=== PATIENT | female | born 1955 | race Caucasian/White ===

== ENCOUNTER 2017-10-24 12:36 | Inpatient (IN) | payer MEDICAID ==
[~2017-10-24] VITALS: Ht 160 cm; Wt 88.0 kg
[~2017-10-24 12:36] MED LIST: ATOR10TA PO; FLUO20CA19 PO; GABA300C10 PO; MET10T PO; METO25TA62 PO; PROM25TA5 PO; Pantoprazole Sodium Sesquihydr PO; RANI-229 PO; VANC500PO PO
[2017-10-24] MEDS ORDERED: SODIUM CHLORIDE 0.9% 1,000 ML IV ONE (13:00)
[2017-10-24] MEDS ORDERED: ONDANSETRON HCL 4 MG/2 ML VIAL IV ONE ×2 (13:00→16:15)
[2017-10-24 13:28] LABS: Basophils # (auto) 0.1 uL; Basophils % (auto) 0.9 % (0.0-2.0); Eosinophils # (auto) 0.1 uL; Eosinophils % (auto) 0.6 % (0.0-7.0); Hematocrit 49.6 % (36.0-46.0); Hemoglobin 17.1 g/dL (12.2-16.2); Lymphocytes # (auto) 3.6 uL; Lymphocytes % (auto) 32.9 % (10.0-50.0); Mean Corpuscular Hemoglobin 31.4 pg (28.0-32.0); Mean Corpuscular Hgb Conc. 34.4 g/dL (32.0-36.0); Mean Corpuscular Volume 91.4 fL (80.0-100.0); Monocytes # (auto) 1.2 uL; Monocytes % (auto) 11.2 % (0.0-12.0); Neutrophils # (auto) 5.9 uL; Neutrophils % (auto) 54.4 % (37.0-80.0); Nucleated Red Blood Cells % 0.2 %; Platelet Count (auto) 318 10^3/uL (140-450); Red Blood Cells 5.43 10^6/uL (4.0-5.20); Red Cell Distribution Width 13.1 % (11.8-14.3); White Blood Cell 10.9 10^3/uL (4.4-10.8)
[2017-10-24 13:40] LABS: INR 1.05 (0.9-1.15); Partial Thromboplastin Time 25.8 sec (22.64-33.71); Prothrombin Time 11.4 sec (9.37-12.3)
[2017-10-24 13:53] LABS: Alanine Aminotransferase 20 U/L (13-56); Albumin 3.9 g/dL (3.4-5.0); Anion Gap 7 (5-15); Aspartate Aminotransferase 14 U/L (15-37); BUN/Creatinine Ratio 23.5; Blood Urea Nitrogen 20 mg/dL (7-18); Calcium 9.7 mg/dL (8.5-10.1); Carbon Dioxide 31 mmol/L (21-32); Chloride 97 mmol/L (98-107); GFR African American 87 mL/min; GFR Non-African American 72 mL/min; Glucose 119 mg/dL (74-106); Magnesium 2.4 mg/dL (1.6-2.6); Sodium 135 mmol/L (136-145)
[2017-10-24 13:57] LABS: Alkaline Phosphatase 133 U/L (45-117); Bilirubin, Total 0.9 mg/dL (0.2-1.0); Total Protein 7.6 g/dL (6.4-8.2)
[2017-10-24] MEDS ORDERED: FLUO20CA19 PO (13:57)
[2017-10-24] MEDS ORDERED: PANT40TA2 PO (13:57)
[2017-10-24] MEDS ORDERED: RANI-226 PO (13:57)
[2017-10-24] MEDS ORDERED: METO25TA3 PO (13:57)
[2017-10-24 14:07] LABS: Potassium 2.7 mmol/L (3.5-5.1)
[2017-10-24] MEDS ORDERED: METO10TA3 PO (14:09)
[2017-10-24] MEDS ORDERED: MORP30TA PO (14:09)
[2017-10-24] MEDS ORDERED: POTASSIUM CHL 20 Meq TABLET PO ONE (14:15)
[2017-10-24] MEDS ORDERED: PROMETHAZINE HCL 25 MG/ML 1ML IV ONE (14:45)
[2017-10-24 15:16] LABS: Urine Bacteria NONE SEEN /hpf (None Seen); Urine Blood 1+ /uL (Negative); Urine Budding Yeast FEW /hpf (None Seen); Urine Mucus FEW (None Seen); Urine Specific Gravity 1.029 (1.001-1.035); Urine WBC 121 /hpf (0 - 5)
[2017-10-24] MEDS ORDERED: KETOROLAC TROMETH 30 MG/ML 1ML VIAL IV ONE (16:15)
[2017-10-24] MEDS ORDERED: cefTRIAXone 1GM/10ml IVPUSH 10 ML IV ONE ×2 (16:15→16:45)
[2017-10-24] MEDS ORDERED: MORPHINE SULFATE 4 MG/ML SYR/VIAL IV ONE (16:15)
[2017-10-24] MEDS ORDERED: HYDROcodone-ACET 5/325MG TAB PO PRN (16:45)
[2017-10-24] MEDS ORDERED: ACETAMINOPHEN 500 MG TAB PO PRN (16:45)
[2017-10-24] MEDS ORDERED: PROMETHAZINE HCL 25 MG/ML 1ML IV PRN (16:45)
[2017-10-24] MEDS ORDERED: LORazepam 0.5 MG TAB PO PRN (16:45)
[2017-10-24] MEDS ORDERED: MORPHINE SULFATE 4 MG/ML SYR/VIAL IV PRN (16:45)
[2017-10-24] MEDS ORDERED: TEMAZEPAM 15 MG CAP PO PRN (16:45)
[2017-10-24] MEDS ORDERED: NITROGLYCERIN 0.4 MG SL TAB SL PRN (16:45)
[2017-10-24] MEDS ORDERED: FLUO1TAB14 PO (16:58)
[2017-10-24] MEDS ORDERED: METOPROLOL SUCCINATE XL 50 MG TAB PO ONE (17:15)
[2017-10-24] MEDS: ENOXAPARIN SOD 40 MG/0.4 ML SYRINGE SC SCH (17:16)
[2017-10-24] MEDS: SOD CHL 0.9%/ KCL 40MEQ 1,000 ML IV SCH (17:16)
[2017-10-24 18:00] VITALS: BP 99/70
[2017-10-24 18:45] VITALS: BP 99/70
[2017-10-24] MEDS: MORPHINE SULF 30 mg ER tab PO SCH (20:43)
[2017-10-24] MEDS: GABAPENTIN 300 MG CAP PO SCH (21:56)
[2017-10-24] MEDS: PANTOPRAZOLE 40 MG TAB PO SCH (21:56)
[2017-10-24] MEDS: ATORVASTATIN 20 MG TAB PO SCH (21:56)
[2017-10-24] MEDS: FLUoxetine HCL 20 MG CAP PO SCH (21:57)
[2017-10-24] MEDS ORDERED: PATIENTS OWN MEDICATION ([Pantoprazole Sodium Sesquihydr] (Protonix Tablet) 40 MG) PO SCH (22:00)
[2017-10-24] MEDS ORDERED: PATIENTS OWN MEDICATION (Morphine Sulfate 1 TAB) PO SCH (22:00)
[2017-10-24] MEDS ORDERED: FLUOXETINE HCL PO SCH (22:00)
[2017-10-24 22:09] VITALS: BP 123/69
[2017-10-24] MEDS ORDERED: LACT10SO3 PO (22:13)
[2017-10-24] MEDS ORDERED: AMIT50TA3 PO (22:13)
[2017-10-24] MEDS ORDERED: LACTULOSE 20Gm/30ML SOLN PO PRN (23:00)
[2017-10-25] MEDS: SOD CHL 0.9%/ KCL 40MEQ 1,000 ML IV SCH ×3 (02:37→22:52)
[2017-10-25 05:29] VITALS: BP 109/71
[2017-10-25] MEDS: GABAPENTIN 300 MG CAP PO SCH ×3 (06:18→22:06)
[2017-10-25 07:12] LABS: Basophils # (auto) 0.1 uL; Basophils % (auto) 0.6 % (0.0-2.0); Eosinophils # (auto) 0.2 uL; Eosinophils % (auto) 1.9 % (0.0-7.0); Hematocrit 43.1 % (36.0-46.0); Hemoglobin 14.5 g/dL (12.2-16.2); Lymphocytes # (auto) 4.5 uL; Mean Corpuscular Hemoglobin 31.7 pg (28.0-32.0); Mean Corpuscular Hgb Conc. 33.7 g/dL (32.0-36.0); Mean Corpuscular Volume 94.2 fL (80.0-100.0); Monocytes # (auto) 1.1 uL; Monocytes % (auto) 11.2 % (0.0-12.0); Neutrophils # (auto) 4.3 uL; Neutrophils % (auto) 42.3 % (37.0-80.0); Nucleated Red Blood Cells % 0.2 %; Platelet Count (auto) 223 10^3/uL (140-450); Red Blood Cells 4.57 10^6/uL (4.0-5.20); Red Cell Distribution Width 12.9 % (11.8-14.3); White Blood Cell 10.3 10^3/uL (4.4-10.8)
[2017-10-25 07:21] LABS: BUN/Creatinine Ratio 26.5; Calcium 8.8 mg/dL (8.5-10.1); Potassium 3.6 mmol/L (3.5-5.1)
[2017-10-25 07:24] LABS: Bilirubin, Total 0.7 mg/dL (0.2-1.0); Total Protein 5.8 g/dL (6.4-8.2)
[2017-10-25 09:00] VITALS: BP 101/72
[2017-10-25] MEDS: cefTRIAXone 1GM/10ml IVPUSH 10 ML IV SCH (09:38)
[2017-10-25] MEDS: MORPHINE SULF 30 mg ER tab PO SCH ×2 (09:39→22:20)
[2017-10-25] MEDS: PANTOPRAZOLE 40 MG TAB PO SCH ×2 (09:39→22:06)
[2017-10-25] MEDS: FLUoxetine HCL 20 MG CAP PO SCH ×2 (09:39→22:06)
[2017-10-25] MEDS: ENOXAPARIN SOD 40 MG/0.4 ML SYRINGE SC SCH (09:40)
[2017-10-25] MEDS ORDERED: PATIENTS OWN MEDICATION (Metoprolol Succinate (Metoprolol Succinate Er) 25 MG) PO SCH (10:00)
[2017-10-25] MEDS ORDERED: ATORVASTATIN CALCIUM 20 MG PO SCH (10:00)
[2017-10-25] MEDS: METOPROLOL SUCCINATE XL 50 MG TAB PO SCH (10:12)
[2017-10-25] MEDS: MORPHINE SULFATE 4 MG/ML SYR/VIAL IV PRN ×2 (11:03→18:54)
[2017-10-25 13:00] VITALS: BP 98/67
[2017-10-25 17:00] VITALS: BP 115/71
[2017-10-25 22:00] VITALS: BP 100/82
[2017-10-25] MEDS: ATORVASTATIN 20 MG TAB PO SCH (22:05)
[2017-10-26 06:10] VITALS: BP 93/64
[2017-10-26] MEDS: GABAPENTIN 300 MG CAP PO SCH ×2 (07:10→14:14)
[2017-10-26 08:58] VITALS: BP 103/56
[2017-10-26] MEDS: SOD CHL 0.9%/ KCL 40MEQ 1,000 ML IV SCH (09:25)
[2017-10-26] MEDS: FLUoxetine HCL 20 MG CAP PO SCH (09:26)
[2017-10-26] MEDS: MORPHINE SULF 30 mg ER tab PO SCH (09:26)
[2017-10-26] MEDS: PANTOPRAZOLE 40 MG TAB PO SCH (09:26)
[2017-10-26] MEDS: cefTRIAXone 1GM/10ml IVPUSH 10 ML IV SCH (09:26)
[2017-10-26] MEDS: ENOXAPARIN SOD 40 MG/0.4 ML SYRINGE SC SCH (09:27)
[2017-10-26] MEDS: METOPROLOL SUCCINATE XL 50 MG TAB PO SCH (09:30)
[2017-10-26 12:47] VITALS: BP 112/72
[2017-10-26] MEDS ORDERED: FLUC200T50 PO (15:57)
[2017-10-26] MEDS ORDERED: CIPR-217 PO (15:57)
[2017-10-26] MEDS ORDERED: FLUCONAZOLE 100 MG TAB PO ONE (16:00)
[2017-10-26 16:11] VITALS: BP 116/73
[2017-10-26 16:58] VITALS: BP 111/65
[2017-10-27] MEDS ORDERED: FLUCONAZOLE 100 MG TAB PO SCH (10:00)
== END 2017-10-26 17:30 | disposition home health service (06) | DRG 463 ==
LOC: ER 12:36 → TELE 12:37 → TELE-EAST 18:00
PROVIDERS: ADMIT Internal Medicine; ATTEND Internal Medicine
DX: N39.0 Urinary tract infection, site not specified (principal); E11.42 Type 2 diabetes mellitus with diabetic polyneuropathy; E11.43 Type 2 diabetes mellitus with diabetic autonomic (poly)neuropathy; I10 Essential (primary) hypertension; F32.9 Major depressive disorder, single episode, unspecified; E78.5 Hyperlipidemia, unspecified; E87.6 Hypokalemia; Z82.0 Family history of epilepsy and other diseases of the nervous system; Z82.49 Family history of ischemic heart disease and other diseases of the circulatory system; I70.8 Atherosclerosis of other arteries; J44.9 Chronic obstructive pulmonary disease, unspecified; K21.9 Gastro-esophageal reflux disease without esophagitis; F41.9 Anxiety disorder, unspecified; K31.84 Gastroparesis; K44.9 Diaphragmatic hernia without obstruction or gangrene; K57.30 Diverticulosis of large intestine without perforation or abscess without bleeding; K59.00 Constipation, unspecified; N13.2 Hydronephrosis with renal and ureteral calculous obstruction; Z85.41 Personal history of malignant neoplasm of cervix uteri; Z86.19 Personal history of other infectious and parasitic diseases; Z87.11 Personal history of peptic ulcer disease; Z90.49 Acquired absence of other specified parts of digestive tract
CPT/HCPCS: 36415; 71045; 74176; 80053; 81001; 83605; 83735; 83880; 84484; 85025; 85610; 85730; 87040; 87086; 93005; 94761; 96361; 96374; 96375; 96376; J2405

== ENCOUNTER 2021-01-23 10:45 | Inpatient (IN) | payer OTHER, MEDICAID ==
[~2021-01-23] VITALS: Ht 160 cm; Wt 102.4 kg
[~2021-01-23 10:45] MED LIST changes: +AMIT50TA3 PO; +CIPR500T4 PO; +FLUC200T50 PO; +FLUO1TAB14 PO; -FLUO20CA19 PO; +LACT10SO3 PO; -MET10T PO; +METO10TA3 PO; -METO25TA62 PO; +METO25TA93 PO; +MORP30TA PO; -RANI-229 PO; +RANI300T PO
[2021-01-23] MEDS ORDERED: MORPHINE SULFATE 4 MG/ML SYR/VIAL IV ONE (11:15)
[2021-01-23] MEDS ORDERED: SODIUM CHLORIDE 0.9% 1,000 ML IV ONE ×2 (11:15)
[2021-01-23] MEDS ORDERED: ONDANSETRON HCL 4 MG/2 ML VIAL IV ONE (11:15)
[2021-01-23 11:16] LABS: Basophils # (auto) 0.1 10 ^3/uL (0-0.2); Basophils % (auto) 0.4 % (0.0-2.0); Eosinophils # (auto) 0 10 ^3/uL (0-0.8); Monocytes # (auto) 1.1 10 ^3/uL (0-1.3); Monocytes % (auto) 5.8 % (0.0-12.0)
[2021-01-23 11:17] LABS: Hemoglobin 14.7 g/dL (12.2-16.2); Lymphocytes # (auto) 2.3 10 ^3/uL (0.4-5.4); Lymphocytes % (auto) 11.6 % (10.0-50.0); Mean Corpuscular Hemoglobin 28.8 pg (28.0-32.0); Mean Corpuscular Hgb Conc. 34.2 g/dL (32.0-36.0); Mean Corpuscular Volume 84.4 fL (80.0-100.0); Neutrophils # (auto) 16.1 10 ^3/uL (1.6-8.6); Neutrophils % (auto) 82.2 % (37.0-80.0); Nucleated Red Blood Cells % 0.1 %; Platelet Count (auto) 434 10^3/uL (140-450); Red Blood Cells 5.09 10^6/uL (4.0-5.20); Red Cell Distribution Width 14.5 % (11.8-14.3); White Blood Cell 19.5 10^3/uL (4.4-10.8)
[2021-01-23 11:29] LABS: Albumin 3.6 g/dL (3.4-5.0); Calcium 10.1 mg/dL (8.5-10.1); Potassium 3.4 mmol/L (3.5-5.1)
[2021-01-23 11:33] LABS: BUN/Creatinine Ratio 14.3; Bilirubin, Total 0.6 mg/dL (0.2-1.0); Total Protein 8.4 g/dL (6.4-8.2)
[2021-01-23 13:09] LABS: Urine Bacteria FEW /hpf (None Seen); Urine Blood 2+ /uL (Negative); Urine Budding Yeast OCCASIONAL /hpf (None Seen); Urine Mucus FEW (None Seen); Urine Specific Gravity 1.026 (1.001-1.035); Urine WBC 1 /hpf (0 - 5)
[2021-01-23] MEDS ORDERED: PROMETHAZINE HCL 25 MG/ML 1ML IV PRN (13:45)
[2021-01-23] MEDS ORDERED: NITROGLYCERIN 0.4 MG SL TAB SL PRN (13:45)
[2021-01-23] MEDS ORDERED: MORPHINE SULF INJ 2 MG/ML SYRINGE 1ML IV PRN (13:45)
[2021-01-23] MEDS: HYDROmorphone HCL 2 MG/ML VL IV PRN ×2 (15:55→20:45)
[2021-01-23 22:00] VITALS: BP 118/98
[2021-01-23] MEDS: AMITRIPTYLINE HCL 25 MG TAB PO SCH (22:14)
[2021-01-23] MEDS: GABAPENTIN 300 MG CAP PO PRN (22:15)
[2021-01-23] MEDS: PANTOPRAZOLE 40 MG TAB PO SCH (22:15)
[2021-01-23] MEDS: FLUoxetine HCL 20 MG CAP PO SCH (22:15)
[2021-01-23] MEDS: ATORVASTATIN 20 MG TAB PO SCH (22:15)
[2021-01-23 23:01] VITALS: BP 123/62
[2021-01-24] MEDS: HYDROmorphone HCL 2 MG/ML VL IV PRN ×3 (01:47→12:48)
[2021-01-24 05:00] VITALS: BP 103/52
[2021-01-24 05:54] LABS: Basophils # (auto) 0 10 ^3/uL (0-0.2); Basophils % (auto) 0.3 % (0.0-2.0); Eosinophils # (auto) 0.1 10 ^3/uL (0-0.8); Hematocrit 35.8 % (36.0-46.0); Hemoglobin 12.1 g/dL (12.2-16.2); Lymphocytes # (auto) 3.7 10 ^3/uL (0.4-5.4); Lymphocytes % (auto) 33.9 % (10.0-50.0); Mean Corpuscular Hemoglobin 28.9 pg (28.0-32.0); Mean Corpuscular Hgb Conc. 33.7 g/dL (32.0-36.0); Mean Corpuscular Volume 85.8 fL (80.0-100.0); Monocytes % (auto) 8.9 % (0.0-12.0); Neutrophils # (auto) 6.1 10 ^3/uL (1.6-8.6); Neutrophils % (auto) 55.9 % (37.0-80.0); Nucleated Red Blood Cells % 0.1 %; Platelet Count (auto) 292 10^3/uL (140-450); Red Blood Cells 4.17 10^6/uL (4.0-5.20); Red Cell Distribution Width 14.5 % (11.8-14.3)
[2021-01-24 06:31] LABS: Potassium 3.3 mmol/L (3.5-5.1)
[2021-01-24 06:35] LABS: BUN/Creatinine Ratio 20.3; Calcium 8.6 mg/dL (8.5-10.1)
[2021-01-24 08:00] VITALS: BP 127/70
[2021-01-24 08:20] VITALS: BP 127/70
[2021-01-24] MEDS: FLUoxetine HCL 20 MG CAP PO SCH ×2 (08:48→22:08)
[2021-01-24] MEDS: GABAPENTIN 300 MG CAP PO PRN ×3 (08:48→22:08)
[2021-01-24] MEDS: METOPROLOL SUCCINATE XL 50 MG TAB PO SCH (08:49)
[2021-01-24] MEDS: PANTOPRAZOLE 40 MG TAB PO SCH ×2 (08:49→22:08)
[2021-01-24 12:37] VITALS: BP 134/68
[2021-01-24] MEDS ORDERED: cefTRIAXone 1GM/50ML D5W 50 ML IV ONE (13:00)
[2021-01-24] MEDS: metroNIDAZOLE 500MG/100ML 100 ML IV SCH ×2 (15:11→22:08)
[2021-01-24] MEDS: HYDROcodone-ACET 10/325MG TAB PO PRN ×2 (16:22→22:09)
[2021-01-24 17:00] VITALS: BP 123/92
[2021-01-24] MEDS: AMITRIPTYLINE HCL 25 MG TAB PO SCH (22:08)
[2021-01-24] MEDS: ATORVASTATIN 20 MG TAB PO SCH (22:08)
[2021-01-24 22:10] VITALS: BP 114/67
[2021-01-25 05:07] VITALS: BP 134/78
[2021-01-25] MEDS: metroNIDAZOLE 500MG/100ML 100 ML IV SCH ×2 (06:00→14:16)
[2021-01-25] MEDS: HYDROcodone-ACET 10/325MG TAB PO PRN (06:15)
[2021-01-25 08:00] VITALS: BP 127/69
[2021-01-25] MEDS: GABAPENTIN 300 MG CAP PO PRN (08:55)
[2021-01-25 09:00] VITALS: BP 127/69
[2021-01-25] MEDS ORDERED: cefTRIAXone 1GM/50ML D5W 50 ML IV SCH (09:00)
[2021-01-25] MEDS: PANTOPRAZOLE 40 MG TAB PO SCH (09:08)
[2021-01-25] MEDS: METOPROLOL SUCCINATE XL 50 MG TAB PO SCH (09:09)
[2021-01-25] MEDS: FLUoxetine HCL 20 MG CAP PO SCH (09:10)
[2021-01-25 12:55] VITALS: BP 127/69
[2021-01-25 12:57] VITALS: BP 124/74
== END 2021-01-25 16:00 | disposition home or self-care (01) | DRG 871 ==
LOC: ER 10:45 → TELE 13:38 → TELE-WESTW 19:23
PROVIDERS: ADMIT Nurse Practitioner Acute Care; ATTEND Family Medicine
DX: A41.9 Sepsis, unspecified organism (principal); K57.33 Diverticulitis of large intestine without perforation or abscess with bleeding; K44.9 Diaphragmatic hernia without obstruction or gangrene; N20.0 Calculus of kidney; N30.90 Cystitis, unspecified without hematuria; J44.9 Chronic obstructive pulmonary disease, unspecified; F41.9 Anxiety disorder, unspecified; F32.9 Major depressive disorder, single episode, unspecified; E78.5 Hyperlipidemia, unspecified; I10 Essential (primary) hypertension; K29.70 Gastritis, unspecified, without bleeding; K21.9 Gastro-esophageal reflux disease without esophagitis; K31.84 Gastroparesis; Z20.822 Contact with and (suspected) exposure to COVID-19; Z82.0 Family history of epilepsy and other diseases of the nervous system; Z82.49 Family history of ischemic heart disease and other diseases of the circulatory system; Z86.19 Personal history of other infectious and parasitic diseases; Z87.11 Personal history of peptic ulcer disease; Z90.49 Acquired absence of other specified parts of digestive tract; Z79.899 Other long term (current) drug therapy
CPT/HCPCS: 36415; 74176; 80048; 80053; 81001; 83605; 83690; 85025; 87040; 87426; 93005; 96361; 96374; 96375; G0378; J0696; J2405; J3490

== ENCOUNTER → 2021-04-13 | Outpatient (CLI) | payer MEDICAID ==
[~2021-04-13] MED LIST changes: -CIPR500T4 PO; -FLUC200T50 PO; -LACT10SO3 PO; -MORP30TA PO; -PROM25TA5 PO; -RANI300T PO; -VANC500PO PO
[2021-04-13 13:07] LABS: Basophils # (auto) 0 10 ^3/uL (0-0.2); Basophils % (auto) 0.2 % (0.0-2.0); Eosinophils # (auto) 0.1 10 ^3/uL (0-0.8); Eosinophils % (auto) 1.6 % (0.0-7.0); Hematocrit 38.9 % (36.0-46.0); Hemoglobin 12.9 g/dL (12.2-16.2); Lymphocytes # (auto) 2.9 10 ^3/uL (0.4-5.4); Lymphocytes % (auto) 30.8 % (10.0-50.0); Mean Corpuscular Hgb Conc. 33.2 g/dL (32.0-36.0); Mean Corpuscular Volume 84.2 fL (80.0-100.0); Monocytes # (auto) 0.8 10 ^3/uL (0-1.3); Monocytes % (auto) 8.3 % (0.0-12.0); Neutrophils # (auto) 5.5 10 ^3/uL (1.6-8.6); Neutrophils % (auto) 59.1 % (37.0-80.0); Red Blood Cells 4.62 10^6/uL (4.0-5.20); Red Cell Distribution Width 15.2 % (11.8-14.3); White Blood Cell 9.4 10^3/uL (4.4-10.8)
[2021-04-13 13:18] LABS: INR 0.98 (0.9-1.15)
[2021-04-13 14:00] LABS: Potassium 3.9 mmol/L (3.5-5.1)
[2021-04-13 14:08] LABS: Albumin 2.9 g/dL (3.4-5.0); BUN/Creatinine Ratio 16.2; Bilirubin, Total 0.2 mg/dL (0.2-1.0); Total Protein 7.1 g/dL (6.4-8.2)
== END | disposition home or self-care (01) ==
LOC: LAB 12:43
PROVIDERS: ATTEND Internal Medicine Gastroenterology
DX: K44.9 Diaphragmatic hernia without obstruction or gangrene (principal); K57.30 Diverticulosis of large intestine without perforation or abscess without bleeding; K62.5 Hemorrhage of anus and rectum
CPT/HCPCS: 36415; 80053; 82378; 85025; 85610

== ENCOUNTER 2023-01-06 12:34 | Inpatient (IN) | payer OTHER, MEDICAID ==
[~2023-01-06] VITALS: Ht 160 cm; Wt 92.8 kg
[~2023-01-06 12:34] MED LIST changes: -AMIT50TA3 PO; +AMIT50TA5 PO
[2023-01-06] MEDS ORDERED: SODIUM CHLORIDE 0.9% 1,000 ML IV ONE ×2 (12:45)
[2023-01-06] MEDS ORDERED: ONDANSETRON HCL 4 MG/2 ML VIAL IV ONE (12:45)
[2023-01-06 13:22] LABS: Eosinophils # (auto) 0 10 ^3/uL (0-0.8); Red Cell Distribution Width 15.4 % (11.8-14.3)
[2023-01-06 13:23] LABS: Basophils # (auto) 0.1 10 ^3/uL (0-0.2); Basophils % (auto) 0.9 % (0.0-2.0); Hematocrit 42.8 % (36.0-46.0); Hemoglobin 14.2 g/dL (12.2-16.2); Lymphocytes % (auto) 18.8 % (10.0-50.0); Mean Corpuscular Hemoglobin 27.3 pg (28.0-32.0); Mean Corpuscular Hgb Conc. 33.3 g/dL (32.0-36.0); Mean Corpuscular Volume 82.1 fL (80.0-100.0); Monocytes # (auto) 1.1 10 ^3/uL (0-1.3); Monocytes % (auto) 6.9 % (0.0-12.0); Neutrophils # (auto) 11.9 10 ^3/uL (1.6-8.6); Neutrophils % (auto) 73.4 % (37.0-80.0); Nucleated Red Blood Cells % 0.2 %; Red Blood Cells 5.22 10^6/uL (4.0-5.20); White Blood Cell 16.2 10^3/uL (4.4-10.8)
[2023-01-06 14:20] LABS: Albumin 3.8 g/dL (3.4-5.0); Calcium 10.3 mg/dL (8.5-10.1); Potassium 3.4 mmol/L (3.5-5.1)
[2023-01-06 14:23] LABS: BUN/Creatinine Ratio 21.7 (10.0-20.0); Bilirubin, Total 0.7 mg/dL (0.2-1.0); Total Protein 7.6 g/dL (6.4-8.2)
[2023-01-06] MEDS ORDERED: TAMSULOSIN HYDROCHLORIDE 0.4 MG CAP PO ONE (16:30)
[2023-01-06] MEDS ORDERED: ACETAMINOPHEN 325 MG TAB PO PRN (16:30)
[2023-01-06] MEDS ORDERED: POTASSIUM EFFERVESENT TAB 25 MEQ PO ONE (16:30)
[2023-01-06] MEDS ORDERED: KETOROLAC TROMETH 30 MG/ML 1ML VIAL IV ONE (16:30)
[2023-01-06] MEDS ORDERED: cefTRIAXone 1GM/50ML D5W 50 ML IV ONE (16:30)
[2023-01-06] MEDS: SODIUM CHLORIDE 0.9% 1,000 ML IV SCH (16:30)
[2023-01-06] MEDS: PANTOPRAZOLE 40 MG TAB PO SCH (17:03)
[2023-01-06 17:12] LABS: Cholesterol 154 mg/dL (< 200); Triglycerides 139 mg/dL (< 150)
[2023-01-06 17:14] LABS: HDL Cholesterol 61 mg/dL (40-59); LDL Cholesterol 85 mg/dL (< 100)
[2023-01-06] MEDS: ONDANSETRON HCL 4 MG/2 ML VIAL IV PRN (17:18)
[2023-01-06] MEDS: KETOROLAC TROMETH 30 MG/ML 1ML VIAL IV PRN (17:18)
[2023-01-06] MEDS ORDERED: MORPHINE SULFATE INJ 2 MG/ml SYRG IV ONE (17:30)
[2023-01-06] MEDS: TAMSULOSIN HYDROCHLORIDE 0.4 MG CAP PO SCH (18:00)
[2023-01-06] MEDS: HYDROcodone-ACET 5/325MG TAB PO PRN (20:01)
[2023-01-06] MEDS: AMITRIPTYLINE HCL 25 MG TAB PO SCH (23:15)
[2023-01-06] MEDS: GABAPENTIN 300 MG CAP PO SCH (23:15)
[2023-01-06] MEDS: ATORVASTATIN 20 MG TAB PO SCH (23:16)
[2023-01-06] MEDS: FLUoxetine HCL 20 MG CAP PO SCH (23:16)
[2023-01-07] VITALS (8 sets, daily range): BP systolic 115–154; BP diastolic 56–72
[2023-01-07] MEDS: ONDANSETRON HCL 4 MG/2 ML VIAL IV PRN (00:23)
[2023-01-07] MEDS: KETOROLAC TROMETH 30 MG/ML 1ML VIAL IV PRN ×4 (00:46→23:45)
[2023-01-07] MEDS: SODIUM CHLORIDE 0.9% 1,000 ML IV SCH ×3 (00:50→17:45)
[2023-01-07] MEDS: HYDROcodone-ACET 5/325MG TAB PO PRN ×6 (01:07→22:00)
[2023-01-07] MEDS: GABAPENTIN 300 MG CAP PO SCH ×3 (05:08→21:30)
[2023-01-07 05:45] LABS: Basophils # (auto) 0 10 ^3/uL (0-0.2); Basophils % (auto) 0.4 % (0.0-2.0); Eosinophils # (auto) 0 10 ^3/uL (0-0.8); Eosinophils % (auto) 0.3 % (0.0-7.0); Hematocrit 37.4 % (36.0-46.0); Hemoglobin 12.5 g/dL (12.2-16.2); Lymphocytes # (auto) 3.1 10 ^3/uL (0.4-5.4); Lymphocytes % (auto) 29.9 % (10.0-50.0); Mean Corpuscular Hemoglobin 27.8 pg (28.0-32.0); Mean Corpuscular Hgb Conc. 33.4 g/dL (32.0-36.0); Mean Corpuscular Volume 83.4 fL (80.0-100.0); Monocytes # (auto) 1.3 10 ^3/uL (0-1.3); Monocytes % (auto) 12.1 % (0.0-12.0); Neutrophils % (auto) 57.3 % (37.0-80.0); Nucleated Red Blood Cells % 0.1 %; Red Blood Cells 4.49 10^6/uL (4.0-5.20); Red Cell Distribution Width 15.6 % (11.8-14.3); White Blood Cell 10.4 10^3/uL (4.4-10.8)
[2023-01-07 06:10] LABS: Albumin 3.1 g/dL (3.4-5.0); Calcium 9.1 mg/dL (8.5-10.1)
[2023-01-07 06:13] LABS: BUN/Creatinine Ratio 33.3 (10.0-20.0); Bilirubin, Total 0.4 mg/dL (0.2-1.0); Total Protein 6.5 g/dL (6.4-8.2)
[2023-01-07] MEDS: cefTRIAXone 1GM/50ML D5W 50 ML IV SCH (09:18)
[2023-01-07] MEDS: ENOXAPARIN SOD 40 MG/0.4 ML SYRINGE SC SCH (09:26)
[2023-01-07] MEDS: PANTOPRAZOLE 40 MG TAB PO SCH ×2 (09:26→21:29)
[2023-01-07] MEDS: FLUoxetine HCL 20 MG CAP PO SCH ×2 (09:26→21:29)
[2023-01-07] MEDS: METOPROLOL SUCCINATE XL 50 MG TAB PO SCH (09:36)
[2023-01-07] MEDS: TAMSULOSIN HYDROCHLORIDE 0.4 MG CAP PO SCH (18:41)
[2023-01-07] MEDS: ATORVASTATIN 20 MG TAB PO SCH (21:29)
[2023-01-07] MEDS: AMITRIPTYLINE HCL 25 MG TAB PO SCH (21:30)
[2023-01-07 22:25] LABS: Urine Bacteria NONE SEEN /hpf (None Seen); Urine Blood 1+ /uL (Negative); Urine Mucus FEW (None Seen); Urine WBC 12 /hpf (0 - 5)
[2023-01-08] VITALS (7 sets, daily range): BP systolic 126–158; BP diastolic 55–81
[2023-01-08] MEDS: SODIUM CHLORIDE 0.9% 1,000 ML IV SCH ×3 (02:16→20:31)
[2023-01-08] MEDS: HYDROcodone-ACET 5/325MG TAB PO PRN (05:36)
[2023-01-08] MEDS: GABAPENTIN 300 MG CAP PO SCH ×3 (05:36→22:58)
[2023-01-08] MEDS: cefTRIAXone 1GM/50ML D5W 50 ML IV SCH (08:59)
[2023-01-08] MEDS: KETOROLAC TROMETH 30 MG/ML 1ML VIAL IV PRN ×3 (08:59→20:25)
[2023-01-08] MEDS: FLUoxetine HCL 20 MG CAP PO SCH ×2 (09:00→22:59)
[2023-01-08] MEDS: PANTOPRAZOLE 40 MG TAB PO SCH ×2 (09:01→22:59)
[2023-01-08] MEDS: METOPROLOL SUCCINATE XL 50 MG TAB PO SCH (09:01)
[2023-01-08] MEDS: ENOXAPARIN SOD 40 MG/0.4 ML SYRINGE SC SCH (09:15)
[2023-01-08] MEDS: HYDROcodone-ACET 10/325MG TAB PO PRN ×2 (12:29→20:23)
[2023-01-08 17:19] LABS: BUN/Creatinine Ratio 25.9 (10.0-20.0); Calcium 9.1 mg/dL (8.5-10.1); Potassium 3.7 mmol/L (3.5-5.1)
[2023-01-08] MEDS: TAMSULOSIN HYDROCHLORIDE 0.4 MG CAP PO SCH (18:00)
[2023-01-08] MEDS: ATORVASTATIN 20 MG TAB PO SCH (22:59)
[2023-01-08] MEDS: AMITRIPTYLINE HCL 25 MG TAB PO SCH (22:59)
[2023-01-08] MEDS: TEMAZEPAM 15 MG CAP PO PRN (22:59)
[2023-01-09] MEDS: KETOROLAC TROMETH 30 MG/ML 1ML VIAL IV PRN ×4 (02:24→23:17)
[2023-01-09] MEDS: SODIUM CHLORIDE 0.9% 1,000 ML IV SCH ×3 (02:50→21:43)
[2023-01-09] MEDS: HYDROcodone-ACET 10/325MG TAB PO PRN ×3 (04:20→22:11)
[2023-01-09 05:00] VITALS: BP 143/118
[2023-01-09] MEDS: GABAPENTIN 300 MG CAP PO SCH ×3 (05:47→21:42)
[2023-01-09 08:00] VITALS: BP 141/76
[2023-01-09 09:00] VITALS: BP 141/76
[2023-01-09] MEDS: PANTOPRAZOLE 40 MG TAB PO SCH ×2 (09:05→21:43)
[2023-01-09] MEDS: FLUoxetine HCL 20 MG CAP PO SCH ×2 (09:05→21:42)
[2023-01-09] MEDS: cefTRIAXone 1GM/50ML D5W 50 ML IV SCH (09:05)
[2023-01-09] MEDS: METOPROLOL SUCCINATE XL 50 MG TAB PO SCH (09:06)
[2023-01-09] MEDS: ENOXAPARIN SOD 40 MG/0.4 ML SYRINGE SC SCH (09:07)
[2023-01-09 13:00] VITALS: BP 138/80
[2023-01-09 16:33] VITALS: BP 153/79
[2023-01-09] MEDS: TAMSULOSIN HYDROCHLORIDE 0.4 MG CAP PO SCH (18:28)
[2023-01-09] MEDS: AMITRIPTYLINE HCL 25 MG TAB PO SCH (21:42)
[2023-01-09] MEDS: ATORVASTATIN 20 MG TAB PO SCH (21:43)
[2023-01-09 22:00] VITALS: BP 140/65
[2023-01-10] MEDS: TEMAZEPAM 15 MG CAP PO PRN (00:11)
[2023-01-10 04:00] VITALS: BP 118/70
[2023-01-10] MEDS: GABAPENTIN 300 MG CAP PO SCH ×2 (06:05→13:42)
[2023-01-10] MEDS: SODIUM CHLORIDE 0.9% 1,000 ML IV SCH ×2 (06:07→09:08)
[2023-01-10 08:10] VITALS: BP 148/98
[2023-01-10] MEDS: KETOROLAC TROMETH 30 MG/ML 1ML VIAL IV PRN (08:24)
[2023-01-10 09:00] VITALS: BP 148/98
[2023-01-10] MEDS: cefTRIAXone 1GM/50ML D5W 50 ML IV SCH (09:08)
[2023-01-10] MEDS: PANTOPRAZOLE 40 MG TAB PO SCH (09:10)
[2023-01-10] MEDS: FLUoxetine HCL 20 MG CAP PO SCH (09:10)
[2023-01-10] MEDS: METOPROLOL SUCCINATE XL 50 MG TAB PO SCH (09:10)
[2023-01-10] MEDS: ENOXAPARIN SOD 40 MG/0.4 ML SYRINGE SC SCH (09:11)
[2023-01-10] MEDS ORDERED: CIPR-173 PO (11:01)
[2023-01-10] MEDS: HYDROcodone-ACET 10/325MG TAB PO PRN (11:29)
[2023-01-10 13:29] VITALS: BP 147/78
[2023-01-10 14:32] VITALS: BP 148/98
[2023-01-10] MEDS: TAMSULOSIN HYDROCHLORIDE 0.4 MG CAP PO SCH (17:52)
== END 2023-01-10 18:24 | disposition home or self-care (01) | DRG 872 ==
LOC: ER 12:34 → OVERFLOW 16:24 → WEST WING 23:30
PROVIDERS: ADMIT Nurse Practitioner Family; ATTEND Family Medicine
DX: A41.9 Sepsis, unspecified organism (principal); N10 Acute pyelonephritis; M48.57XA Collapsed vertebra, not elsewhere classified, lumbosacral region, initial encounter for fracture; N20.0 Calculus of kidney; E66.01 Morbid (severe) obesity due to excess calories; K44.9 Diaphragmatic hernia without obstruction or gangrene; I10 Essential (primary) hypertension; E78.00 Pure hypercholesterolemia, unspecified; E87.6 Hypokalemia; F12.10 Cannabis abuse, uncomplicated; F32.A Depression, unspecified; J44.9 Chronic obstructive pulmonary disease, unspecified; K21.9 Gastro-esophageal reflux disease without esophagitis; R29.890 Loss of height; S80.01XA Contusion of right knee, initial encounter; W18.39XA Other fall on same level, initial encounter; Z82.49 Family history of ischemic heart disease and other diseases of the circulatory system; Z82.0 Family history of epilepsy and other diseases of the nervous system; Z87.11 Personal history of peptic ulcer disease; Y92.098 Other place in other non-institutional residence as the place of occurrence of the external cause; Y99.8 Other external cause status; Z90.49 Acquired absence of other specified parts of digestive tract; Y93.K1 Activity, walking an animal; Z71.51 Drug abuse counseling and surveillance of drug abuser; Z68.36 Body mass index [BMI] 36.0-36.9, adult
CPT/HCPCS: 36415; 72131; 72148; 73700; 74176; 80048; 80053; 80061; 81001; 83036; 84443; 84484; 85025; 87086; 93005; 96361; 96365; 96375; G0378; J0696; J1885; J2405

== ENCOUNTER 2023-02-04 23:21 | Inpatient (IN) | payer OTHER, MEDICAID ==
[~2023-02-04] VITALS: Ht 160 cm; Wt 90.1 kg
[~2023-02-04 23:21] MED LIST changes: +AMIT50TA10 PO; -AMIT50TA5 PO; +CIPR-173 PO; +GABA-1250 PO; -GABA300C10 PO
[2023-02-05 00:07] LABS: Basophils # (auto) 0.1 10 ^3/uL (0-0.2); Basophils % (auto) 0.4 % (0.0-2.0); Eosinophils # (auto) 0 10 ^3/uL (0-0.8); Eosinophils % (auto) 0.1 % (0.0-7.0); Hemoglobin 14.3 g/dL (12.2-16.2); Lymphocytes # (auto) 2.1 10 ^3/uL (0.4-5.4); Lymphocytes % (auto) 12.6 % (10.0-50.0); Mean Corpuscular Hemoglobin 27.6 pg (28.0-32.0); Mean Corpuscular Hgb Conc. 33.2 g/dL (32.0-36.0); Mean Corpuscular Volume 83.1 fL (80.0-100.0); Monocytes # (auto) 0.9 10 ^3/uL (0-1.3); Monocytes % (auto) 5.8 % (0.0-12.0); Neutrophils # (auto) 13.4 10 ^3/uL (1.6-8.6); Neutrophils % (auto) 81.1 % (37.0-80.0); Red Blood Cells 5.17 10^6/uL (4.0-5.20); Red Cell Distribution Width 15.6 % (11.8-14.3); White Blood Cell 16.5 10^3/uL (4.4-10.8)
[2023-02-05] MEDS ORDERED: ONDANSETRON HCL 4 MG/2 ML VIAL IV ONE ×2 (00:15→04:30)
[2023-02-05] MEDS ORDERED: SODIUM CHLORIDE 0.9% 1,000 ML IV ONE ×2 (00:15→02:30)
[2023-02-05] MEDS ORDERED: HYDROmorphone HCL 2 MG/ML VL/or syr IV ONE ×2 (00:15→03:30)
[2023-02-05 01:22] LABS: Albumin 3.7 g/dL (3.4-5.0); Calcium 10.3 mg/dL (8.5-10.1)
[2023-02-05 01:26] LABS: Bilirubin, Total 0.7 mg/dL (0.2-1.0); Total Protein 8.1 g/dL (6.4-8.2)
[2023-02-05 01:43] LABS: Urine Bacteria FEW /hpf (None Seen); Urine Blood 2+ /uL (Negative); Urine Mucus FEW (None Seen); Urine Specific Gravity 1.018 (1.001-1.035); Urine WBC 3 /hpf (0 - 5)
[2023-02-05 01:43] LABS: Potassium 2.9 mmol/L (3.5-5.1)
[2023-02-05] MEDS ORDERED: cefTRIAXone 1GM/50ML D5W 50 ML IV ONE (02:30)
[2023-02-05] MEDS ORDERED: POTASSIUM CHL 20MEQ/100ML 100 ML IV ONE (02:30)
[2023-02-05] MEDS ORDERED: ACETAMINOPHEN 325 MG TAB PO PRN (04:15)
[2023-02-05] MEDS ORDERED: POTASSIUM EFFERVESENT TAB 25 MEQ PO ONE (05:30)
[2023-02-05] MEDS ORDERED: PANTOPRAZOLE 40 MG TAB PO SCH (10:00)
[2023-02-05] MEDS: GABAPENTIN 300 MG CAP PO SCH ×3 (14:09→21:57)
[2023-02-05] MEDS: cefTRIAXone 1GM/50ML D5W 50 ML IV SCH (16:04)
[2023-02-05] MEDS: ONDANSETRON HCL 4 MG/2 ML VIAL IV PRN ×2 (16:05→18:19)
[2023-02-05] MEDS: METOPROLOL SUCCINATE XL 50 MG TAB PO SCH (16:06)
[2023-02-05] MEDS: HYDROcodone-ACET 5/325MG TAB PO PRN ×2 (16:06→22:02)
[2023-02-05] MEDS ORDERED: KETOROLAC TROMETH 30 MG/ML 1ML VIAL IV ONE (16:45)
[2023-02-05] MEDS ORDERED: PANTOPRAZOLE 40 MG/10 ML VIAL INJ IV ONE (16:45)
[2023-02-05] MEDS ORDERED: metroNIDAZOLE 500MG/100ML 100 ML IV SCH (16:47)
[2023-02-05] MEDS ORDERED: hydrALAZINE HCL 20 MG/ML VL IV PRN (19:45)
[2023-02-05] MEDS: ATORVASTATIN 20 MG TAB PO SCH (21:57)
[2023-02-05 22:00] VITALS: BP_SYST 127; BP_SYST 172; BP_DIAS 70; BP_DIAS 89
[2023-02-05] MEDS: metroNIDAZOLE 500MG/100ML 100 ML IV SCH (22:00)
[2023-02-05] MEDS ORDERED: AMITRIPTYLINE HCL 25 MG TAB PO ONE (22:45)
[2023-02-05] MEDS ORDERED: MORPHINE SULF 15mg ER tab PO ONE (22:45)
[2023-02-06] VITALS: BP 143/74
[2023-02-06] MEDS: D5W/SOD CHL 0.45%/KCL 40MEQ 1,000 ML IV SCH ×3 (00:19→15:10)
[2023-02-06] MEDS: ONDANSETRON HCL 4 MG/2 ML VIAL IV PRN ×3 (00:29→15:10)
[2023-02-06 05:00] VITALS: BP 174/86
[2023-02-06] MEDS: metroNIDAZOLE 500MG/100ML 100 ML IV SCH ×3 (06:16→21:54)
[2023-02-06] MEDS: GABAPENTIN 300 MG CAP PO SCH ×3 (06:23→21:54)
[2023-02-06 06:32] LABS: Albumin 3.3 g/dL (3.4-5.0); Calcium 8.9 mg/dL (8.5-10.1)
[2023-02-06 06:35] LABS: BUN/Creatinine Ratio 17.9 (10.0-20.0); Bilirubin, Total 0.6 mg/dL (0.2-1.0); Total Protein 6.9 g/dL (6.4-8.2)
[2023-02-06 06:38] LABS: Basophils # (auto) 0 10 ^3/uL (0-0.2); Basophils % (auto) 0.2 % (0.0-2.0); Eosinophils # (auto) 0 10 ^3/uL (0-0.8); Eosinophils % (auto) 0.1 % (0.0-7.0); Hemoglobin 12.6 g/dL (12.2-16.2); Lymphocytes % (auto) 26.4 % (10.0-50.0); Mean Corpuscular Hemoglobin 27.6 pg (28.0-32.0); Mean Corpuscular Hgb Conc. 33.2 g/dL (32.0-36.0); Mean Corpuscular Volume 83.2 fL (80.0-100.0); Monocytes # (auto) 1.4 10 ^3/uL (0-1.3); Monocytes % (auto) 12.3 % (0.0-12.0); Neutrophils # (auto) 7.1 10 ^3/uL (1.6-8.6); Nucleated Red Blood Cells % 0.1 %; Potassium 2.9 mmol/L (3.5-5.1); Red Blood Cells 4.56 10^6/uL (4.0-5.20); Red Cell Distribution Width 15.6 % (11.8-14.3); White Blood Cell 11.6 10^3/uL (4.4-10.8)
[2023-02-06] MEDS ORDERED: POTASSIUM CHL 20 Meq TABLET PO ONE ×2 (07:00→16:00)
[2023-02-06] MEDS: cefTRIAXone 1GM/50ML D5W 50 ML IV SCH (08:58)
[2023-02-06 09:05] VITALS: BP 153/92
[2023-02-06] MEDS: PANTOPRAZOLE 40 MG/10 ML VIAL INJ IV SCH (10:23)
[2023-02-06] MEDS: METOPROLOL SUCCINATE XL 50 MG TAB PO SCH (10:24)
[2023-02-06] MEDS ORDERED: FLUoxetine HCL 20 MG CAP PO ONE (11:15)
[2023-02-06] MEDS ORDERED: POTASSIUM CHLORIDE 40 MEQ, LIDOCAINE 1% (LOCAL ANESTH.) 4 ML in SODIUM CHL 0.9% 250 ML IV ONE (12:00)
[2023-02-06 12:30] VITALS: BP 146/75
[2023-02-06] MEDS: METOCLOPRAMIDE HCL 10 MG TAB PO SCH ×3 (12:31→21:54)
[2023-02-06] MEDS: HYDROcodone-ACET 5/325MG TAB PO PRN ×2 (13:57→21:54)
[2023-02-06 17:21] VITALS: BP 154/65
[2023-02-06] MEDS: AMITRIPTYLINE HCL 25 MG TAB PO SCH (21:54)
[2023-02-06] MEDS: ATORVASTATIN 20 MG TAB PO SCH (21:54)
[2023-02-06 22:00] VITALS: BP 163/79
[2023-02-07 05:00] VITALS: BP 107/64
[2023-02-07 05:57] LABS: BUN/Creatinine Ratio 10.9 (10.0-20.0); Calcium 9.6 mg/dL (8.5-10.1); Magnesium 2.4 mg/dL (1.6-2.6); Potassium 3.7 mmol/L (3.5-5.1)
[2023-02-07 06:19] LABS: Basophils # (auto) 0 10 ^3/uL (0-0.2); Basophils % (auto) 0.5 % (0.0-2.0); Eosinophils # (auto) 0.1 10 ^3/uL (0-0.8); Hematocrit 39.1 % (36.0-46.0); Lymphocytes # (auto) 3.4 10 ^3/uL (0.4-5.4); Lymphocytes % (auto) 38.2 % (10.0-50.0); Mean Corpuscular Hgb Conc. 33.3 g/dL (32.0-36.0); Mean Corpuscular Volume 84.1 fL (80.0-100.0); Monocytes % (auto) 11.6 % (0.0-12.0); Neutrophils # (auto) 4.4 10 ^3/uL (1.6-8.6); Neutrophils % (auto) 48.7 % (37.0-80.0); Nucleated Red Blood Cells % 0.1 %; Red Blood Cells 4.64 10^6/uL (4.0-5.20); Red Cell Distribution Width 15.6 % (11.8-14.3)
[2023-02-07] MEDS: metroNIDAZOLE 500MG/100ML 100 ML IV SCH ×2 (06:24→14:37)
[2023-02-07] MEDS: METOCLOPRAMIDE HCL 10 MG TAB PO SCH (06:25)
[2023-02-07] MEDS: GABAPENTIN 300 MG CAP PO SCH ×3 (06:25→22:41)
[2023-02-07] MEDS: HYDROcodone-ACET 5/325MG TAB PO PRN ×2 (06:32→22:41)
[2023-02-07 09:00] VITALS: BP 140/75
[2023-02-07] MEDS: cefTRIAXone 1GM/50ML D5W 50 ML IV SCH (09:54)
[2023-02-07] MEDS: ONDANSETRON HCL 4 MG/2 ML VIAL IV PRN ×2 (09:55→18:03)
[2023-02-07] MEDS: METOPROLOL SUCCINATE XL 50 MG TAB PO SCH ×2 (09:55→10:00)
[2023-02-07] MEDS: FLUoxetine HCL 20 MG CAP PO SCH ×2 (09:55→10:00)
[2023-02-07] MEDS: PANTOPRAZOLE 40 MG/10 ML VIAL INJ IV SCH ×2 (09:55→22:40)
[2023-02-07] MEDS: D5W/SOD CHL 0.45%/KCL 40MEQ 1,000 ML IV SCH ×2 (10:04→22:05)
[2023-02-07] MEDS: SUCRALFATE 1 GM/10 ML ORAL SUSP PO SCH ×3 (11:48→22:40)
[2023-02-07 13:00] VITALS: BP 150/79
[2023-02-07 17:00] VITALS: BP 153/93
[2023-02-07] MEDS: METOCLOPRAMIDE HCL 5MG/ml INJ 2ml VIAL IV SCH (22:40)
[2023-02-07] MEDS: ATORVASTATIN 20 MG TAB PO SCH (22:41)
[2023-02-07] MEDS: AMITRIPTYLINE HCL 25 MG TAB PO SCH (22:41)
[2023-02-07 23:06] VITALS: BP 145/78
[2023-02-08] VITALS (7 sets, daily range): BP systolic 116–143; BP diastolic 63–95
[2023-02-08] MEDS: HYDROcodone-ACET 5/325MG TAB PO PRN ×3 (03:02→20:17)
[2023-02-08 05:47] LABS: Basophils # (auto) 0.1 10 ^3/uL (0-0.2); Basophils % (auto) 0.6 % (0.0-2.0); Eosinophils # (auto) 0.2 10 ^3/uL (0-0.8); Hematocrit 39.2 % (36.0-46.0); Hemoglobin 12.8 g/dL (12.2-16.2); Lymphocytes # (auto) 3.9 10 ^3/uL (0.4-5.4); Lymphocytes % (auto) 43.4 % (10.0-50.0); Mean Corpuscular Hemoglobin 27.4 pg (28.0-32.0); Mean Corpuscular Hgb Conc. 32.7 g/dL (32.0-36.0); Mean Corpuscular Volume 83.8 fL (80.0-100.0); Monocytes # (auto) 0.9 10 ^3/uL (0-1.3); Monocytes % (auto) 10.2 % (0.0-12.0); Neutrophils # (auto) 3.9 10 ^3/uL (1.6-8.6); Neutrophils % (auto) 43.8 % (37.0-80.0); Nucleated Red Blood Cells % 0.1 %; Red Blood Cells 4.68 10^6/uL (4.0-5.20); Red Cell Distribution Width 15.6 % (11.8-14.3); White Blood Cell 8.9 10^3/uL (4.4-10.8)
[2023-02-08 05:54] LABS: INR 1.04 (0.9-1.15); Partial Thromboplastin Time 26.5 sec (24.6-33.4)
[2023-02-08 06:03] LABS: Potassium 3.3 mmol/L (3.5-5.1)
[2023-02-08 06:14] LABS: Calcium 9.1 mg/dL (8.5-10.1)
[2023-02-08] MEDS: GABAPENTIN 300 MG CAP PO SCH ×3 (06:36→22:18)
[2023-02-08] MEDS: METOCLOPRAMIDE HCL 5MG/ml INJ 2ml VIAL IV SCH ×2 (06:36→13:05)
[2023-02-08] MEDS: SUCRALFATE 1 GM/10 ML ORAL SUSP PO SCH ×4 (06:36→22:18)
[2023-02-08] MEDS: PANTOPRAZOLE 40 MG/10 ML VIAL INJ IV SCH ×2 (10:02→22:18)
[2023-02-08] MEDS: cefTRIAXone 1GM/50ML D5W 50 ML IV SCH (10:03)
[2023-02-08] MEDS: FLUoxetine HCL 20 MG CAP PO SCH (10:04)
[2023-02-08] MEDS: METOPROLOL SUCCINATE XL 50 MG TAB PO SCH (10:04)
[2023-02-08] MEDS ORDERED: POTASSIUM CHLORIDE 40 MEQ, LIDOCAINE 1% (LOCAL ANESTH.) 4 ML in SODIUM CHL 0.9% 250 ML IV ONE (10:45)
[2023-02-08] MEDS: D5W/SOD CHL 0.45%/KCL 40MEQ 1,000 ML IV SCH (12:13)
[2023-02-08] MEDS: ATORVASTATIN 20 MG TAB PO SCH (22:18)
[2023-02-08] MEDS: AMITRIPTYLINE HCL 25 MG TAB PO SCH (22:18)
[2023-02-08] MEDS: METOCLOPRAMIDE HCL 10 MG TAB PO SCH (22:19)
[2023-02-08] MEDS: MORPHINE SULFATE INJ 2 MG/ml SYRG IV PRN (22:26)
[2023-02-09] MEDS: HYDROcodone-ACET 5/325MG TAB PO PRN (01:38)
[2023-02-09 05:00] VITALS: BP 148/84
[2023-02-09] MEDS: SUCRALFATE 1 GM/10 ML ORAL SUSP PO SCH ×2 (06:43→11:30)
[2023-02-09] MEDS: GABAPENTIN 300 MG CAP PO SCH (06:44)
[2023-02-09] MEDS: MORPHINE SULFATE INJ 2 MG/ml SYRG IV PRN (06:45)
[2023-02-09 06:46] LABS: Basophils # (auto) 0 10 ^3/uL (0-0.2); Basophils % (auto) 0.6 % (0.0-2.0); Eosinophils # (auto) 0.3 10 ^3/uL (0-0.8); Eosinophils % (auto) 3.9 % (0.0-7.0); Hematocrit 40.7 % (36.0-46.0); Hemoglobin 13.6 g/dL (12.2-16.2); Lymphocytes # (auto) 3.6 10 ^3/uL (0.4-5.4); Lymphocytes % (auto) 44.2 % (10.0-50.0); Mean Corpuscular Hemoglobin 28.1 pg (28.0-32.0); Mean Corpuscular Hgb Conc. 33.3 g/dL (32.0-36.0); Mean Corpuscular Volume 84.2 fL (80.0-100.0); Monocytes # (auto) 0.7 10 ^3/uL (0-1.3); Monocytes % (auto) 8.5 % (0.0-12.0); Neutrophils # (auto) 3.5 10 ^3/uL (1.6-8.6); Neutrophils % (auto) 42.8 % (37.0-80.0); Nucleated Red Blood Cells % 0.1 %; Red Blood Cells 4.84 10^6/uL (4.0-5.20); Red Cell Distribution Width 15.7 % (11.8-14.3); White Blood Cell 8.2 10^3/uL (4.4-10.8)
[2023-02-09 07:31] LABS: Calcium 9.6 mg/dL (8.5-10.1); Potassium 3.9 mmol/L (3.5-5.1)
[2023-02-09 08:00] VITALS: BP 136/82
[2023-02-09] MEDS: cefTRIAXone 1GM/50ML D5W 50 ML IV SCH (08:15)
[2023-02-09] MEDS ORDERED: HYDR-4902 PO (08:22)
[2023-02-09] MEDS ORDERED: METO-517 PO (08:22)
[2023-02-09] MEDS ORDERED: SUCR1SUS26 PO (08:22)
[2023-02-09 08:41] VITALS: BP 136/82
[2023-02-09 09:00] VITALS: BP 136/86
[2023-02-09 09:09] VITALS: BP 136/82
[2023-02-09] MEDS: FLUoxetine HCL 20 MG CAP PO SCH (09:29)
[2023-02-09] MEDS: METOPROLOL SUCCINATE XL 50 MG TAB PO SCH (09:29)
[2023-02-09] MEDS: PANTOPRAZOLE 40 MG/10 ML VIAL INJ IV SCH (09:29)
[2023-02-09] MEDS: METOCLOPRAMIDE HCL 10 MG TAB PO SCH (09:29)
== END 2023-02-09 09:45 | disposition home or self-care (01) | DRG 872 ==
LOC: ER 23:21 → OVERFLOW 02-05 04:11 → EAST 02-05 20:38
PROVIDERS: ADMIT Nurse Practitioner; ATTEND Internal Medicine
DX: A41.9 Sepsis, unspecified organism (principal); N10 Acute pyelonephritis; M48.56XA Collapsed vertebra, not elsewhere classified, lumbar region, initial encounter for fracture; N17.9 Acute kidney failure, unspecified; F32.A Depression, unspecified; J44.9 Chronic obstructive pulmonary disease, unspecified; I10 Essential (primary) hypertension; N20.0 Calculus of kidney; K21.9 Gastro-esophageal reflux disease without esophagitis; E66.9 Obesity, unspecified; E86.0 Dehydration; R13.10 Dysphagia, unspecified; W18.39XA Other fall on same level, initial encounter; K57.90 Diverticulosis of intestine, part unspecified, without perforation or abscess without bleeding; E87.6 Hypokalemia; E78.00 Pure hypercholesterolemia, unspecified; G89.29 Other chronic pain; F12.10 Cannabis abuse, uncomplicated; Z87.442 Personal history of urinary calculi; Z87.11 Personal history of peptic ulcer disease; Y93.K1 Activity, walking an animal; Y92.098 Other place in other non-institutional residence as the place of occurrence of the external cause; Y99.8 Other external cause status; Z90.49 Acquired absence of other specified parts of digestive tract
CPT/HCPCS: 36415; 71045; 71250; 74176; 80048; 80053; 81001; 83690; 83735; 84484; 85025; 85610; 85730; 87081; 87086; 93005; 96361; 96365; 96375; C9113; G0378; J0696; J1885; J2001; J2405; J3490

== ENCOUNTER 2023-03-06 12:49 | Inpatient (IN) | payer OTHER, MEDICAID ==
[~2023-03-06] VITALS: Ht 160 cm; Wt 82.6 kg
[~2023-03-06 12:49] MED LIST changes: +HYDR-4902 PO; +METO-517 PO; -METO10TA3 PO; +SUCR1SUS26 PO
[2023-03-06 14:36] LABS: Basophils # (auto) 0.1 10 ^3/uL (0-0.2); Basophils % (auto) 0.8 % (0.0-2.0); Eosinophils # (auto) 0 10 ^3/uL (0-0.8); Eosinophils % (auto) 0.1 % (0.0-7.0); Hemoglobin 14.9 g/dL (12.2-16.2); Lymphocytes # (auto) 2.6 10 ^3/uL (0.4-5.4); Nucleated Red Blood Cells % 0.2 %; Red Blood Cells 5.51 10^6/uL (4.0-5.20); Red Cell Distribution Width 16.2 % (11.8-14.3)
[2023-03-06 14:38] LABS: Lymphocytes % (auto) 18.1 % (10.0-50.0); Mean Corpuscular Hemoglobin 27.1 pg (28.0-32.0); Mean Corpuscular Hgb Conc. 32.4 g/dL (32.0-36.0); Mean Corpuscular Volume 83.6 fL (80.0-100.0); Monocytes # (auto) 1.1 10 ^3/uL (0-1.3); Monocytes % (auto) 7.4 % (0.0-12.0); Neutrophils # (auto) 10.5 10 ^3/uL (1.6-8.6); Neutrophils % (auto) 73.6 % (37.0-80.0); White Blood Cell 14.3 10^3/uL (4.4-10.8)
[2023-03-06 14:53] LABS: Albumin 3.8 g/dL (3.4-5.0); Anion Gap 16 (5-15); Blood Urea Nitrogen 8 mg/dL (7-18); Calcium 10.6 mg/dL (8.5-10.1); Carbon Dioxide 13 mmol/L (21-32); Chloride 110 mmol/L (98-107); Glucose 197 mg/dL (74-106); Lipase 44 U/L (73-393); Potassium 3.4 mmol/L (3.5-5.1); Sodium 139 mmol/L (136-145)
[2023-03-06 14:55] LABS: Alanine Aminotransferase 23 U/L (13-56); Aspartate Aminotransferase 17 U/L (15-37); BUN/Creatinine Ratio 8.1 (10.0-20.0); GFR African American 72 mL/min; GFR Non-African American 59 mL/min
[2023-03-06 14:57] LABS: Alkaline Phosphatase 237 U/L (45-117); Bilirubin, Total 0.7 mg/dL (0.2-1.0)
[2023-03-06] MEDS ORDERED: ONDANSETRON HCL 4 MG/2 ML VIAL IV ONE ×3 (15:00→22:45)
[2023-03-06] MEDS ORDERED: SODIUM CHLORIDE 0.9% 1,000 ML IV ONE (15:00)
[2023-03-06] MEDS ORDERED: KETOROLAC TROMETH 30 MG/ML 1ML VIAL IV ONE (15:30)
[2023-03-06] MEDS ORDERED: CEFTRIAXONE SODIUM 2 GM in D5W 5% 100 ML IV ONE (16:30)
[2023-03-06] MEDS ORDERED: KETOROLAC TROMETH 60MG/2ML VIAL IM ONE (16:45)
[2023-03-06] MEDS ORDERED: ONDANSETRON HCL 4 MG/2 ML VIAL IM ONE ×2 (16:45→21:00)
[2023-03-06] MEDS ORDERED: ACETAMINOPHEN 325 MG TAB PO PRN (18:30)
[2023-03-06] MEDS ORDERED: HYDROcodone-ACET 5/325MG TAB PO PRN (18:30)
[2023-03-06] MEDS: POTASSIUM CHL 20 Meq TABLET PO ONE ×2 (19:30→20:17)
[2023-03-06] MEDS ORDERED: cefTRIAXone 1GM/50ML D5W 0 ML IV ONE (20:15)
[2023-03-06] MEDS: PANTOPRAZOLE 40 MG/10 ML VIAL INJ IV ONE ×2 (20:16→21:41)
[2023-03-06] MEDS: ONDANSETRON HCL 4 MG/2 ML VIAL IV PRN ×2 (20:16→21:41)
[2023-03-06 21:50] LABS: Hematocrit 46.3 % (36.0-46.0); Hemoglobin 14.9 g/dL (12.2-16.2)
[2023-03-06] MEDS: SUCRALFATE 1 GM TAB PO SCH (22:00)
[2023-03-06] MEDS: ATORVASTATIN 20 MG TAB PO SCH (22:00)
[2023-03-06] MEDS: GABAPENTIN 300 MG CAP PO SCH (22:00)
[2023-03-06] MEDS: MORPHINE SULFATE INJ 2 MG/ml SYRG IV PRN (22:06)
[2023-03-06] MEDS ORDERED: HYDROmorphone HCL 2 MG/ML VL/or syr IV ONE (22:45)
[2023-03-06 22:56] VITALS: BP 150/67
[2023-03-07] MEDS: ONDANSETRON HCL 4 MG/2 ML VIAL IV PRN ×4 (02:43→21:58)
[2023-03-07 05:00] VITALS: BP 105/64
[2023-03-07] MEDS: GABAPENTIN 300 MG CAP PO SCH ×3 (06:00→21:57)
[2023-03-07] MEDS: SUCRALFATE 1 GM TAB PO SCH ×4 (06:39→21:57)
[2023-03-07 06:45] LABS: Basophils # (auto) 0 10 ^3/uL (0-0.2); Basophils % (auto) 0.2 % (0.0-2.0); Eosinophils # (auto) 0 10 ^3/uL (0-0.8); Eosinophils % (auto) 0.1 % (0.0-7.0); Hematocrit 43.1 % (36.0-46.0); Hemoglobin 14.3 g/dL (12.2-16.2); Lymphocytes # (auto) 3.3 10 ^3/uL (0.4-5.4); Lymphocytes % (auto) 18.1 % (10.0-50.0); Mean Corpuscular Hemoglobin 27.9 pg (28.0-32.0); Mean Corpuscular Hgb Conc. 33.2 g/dL (32.0-36.0); Mean Corpuscular Volume 83.9 fL (80.0-100.0); Monocytes # (auto) 2.3 10 ^3/uL (0-1.3); Monocytes % (auto) 12.4 % (0.0-12.0); Neutrophils # (auto) 12.7 10 ^3/uL (1.6-8.6); Neutrophils % (auto) 69.2 % (37.0-80.0); Red Blood Cells 5.14 10^6/uL (4.0-5.20); Red Cell Distribution Width 16.2 % (11.8-14.3); White Blood Cell 18.3 10^3/uL (4.4-10.8)
[2023-03-07 07:14] LABS: Calcium 10.5 mg/dL (8.5-10.1); Potassium 3.5 mmol/L (3.5-5.1)
[2023-03-07 08:42] VITALS: BP 168/71
[2023-03-07] MEDS: cefTRIAXone 1GM/50ML D5W 50 ML IV SCH (09:20)
[2023-03-07] MEDS: PANTOPRAZOLE 40 MG/10 ML VIAL INJ IV SCH (09:54)
[2023-03-07] MEDS: METOPROLOL SUCCINATE XL 50 MG TAB PO SCH (09:54)
[2023-03-07] MEDS: MORPHINE SULFATE INJ 2 MG/ml SYRG IV PRN ×2 (09:57→21:59)
[2023-03-07] MEDS ORDERED: PANTOPRAZOLE 40 MG TAB PO SCH (10:00)
[2023-03-07 13:00] VITALS: BP 119/68
[2023-03-07] MEDS: D5W/SOD CHLO 0.9% 1,000 ML IV SCH ×2 (17:17→19:25)
[2023-03-07 17:18] VITALS: BP 160/77
[2023-03-07 20:00] VITALS: BP 148/76
[2023-03-07] MEDS: ATORVASTATIN 20 MG TAB PO SCH (21:57)
[2023-03-07 22:00] VITALS: BP 148/76
[2023-03-07] MEDS: ZOLPIDEM TARTRATE 5 MG TAB PO PRN (22:23)
[2023-03-08] MEDS: D5W/SOD CHLO 0.9% 1,000 ML IV SCH ×4 (02:05→21:16)
[2023-03-08 05:00] VITALS: BP 105/60
[2023-03-08] MEDS: SUCRALFATE 1 GM TAB PO SCH ×4 (06:49→21:16)
[2023-03-08] MEDS: GABAPENTIN 300 MG CAP PO SCH ×3 (06:49→19:40)
[2023-03-08 08:23] VITALS: BP 179/80
[2023-03-08] MEDS: PANTOPRAZOLE 40 MG/10 ML VIAL INJ IV SCH (09:46)
[2023-03-08] MEDS: cefTRIAXone 1GM/50ML D5W 50 ML IV SCH (09:46)
[2023-03-08] MEDS: METOPROLOL SUCCINATE XL 50 MG TAB PO SCH (09:47)
[2023-03-08] MEDS: ONDANSETRON HCL 4 MG/2 ML VIAL IV PRN ×3 (09:57→20:22)
[2023-03-08 12:57] VITALS: BP 151/85
[2023-03-08 17:02] VITALS: BP 122/76
[2023-03-08] MEDS: ATORVASTATIN 20 MG TAB PO SCH (19:41)
[2023-03-08] MEDS: MORPHINE SULFATE INJ 2 MG/ml SYRG IV PRN (19:43)
[2023-03-08 20:00] VITALS: BP 138/82
[2023-03-08] MEDS: ZOLPIDEM TARTRATE 5 MG TAB PO PRN (21:16)
[2023-03-08 22:00] VITALS: BP 160/73
[2023-03-09] MEDS: ONDANSETRON HCL 4 MG/2 ML VIAL IV PRN ×4 (02:41→21:18)
[2023-03-09] MEDS: MORPHINE SULFATE INJ 2 MG/ml SYRG IV PRN ×5 (02:42→21:17)
[2023-03-09] MEDS: D5W/SOD CHLO 0.9% 1,000 ML IV SCH ×3 (04:45→18:05)
[2023-03-09 05:00] VITALS: BP 153/86
[2023-03-09] MEDS: GABAPENTIN 300 MG CAP PO SCH ×3 (06:00→21:16)
[2023-03-09] MEDS: SUCRALFATE 1 GM TAB PO SCH ×4 (07:05→21:15)
[2023-03-09] MEDS: PANTOPRAZOLE 40 MG/10 ML VIAL INJ IV SCH (08:31)
[2023-03-09] MEDS: cefTRIAXone 1GM/50ML D5W 50 ML IV SCH (08:31)
[2023-03-09] MEDS: METOPROLOL SUCCINATE XL 50 MG TAB PO SCH (08:31)
[2023-03-09 09:00] VITALS: BP 166/97
[2023-03-09 10:02] LABS: Basophils # (auto) 0 10 ^3/uL (0-0.2); Basophils % (auto) 0.5 % (0.0-2.0); Eosinophils # (auto) 0.1 10 ^3/uL (0-0.8); Eosinophils % (auto) 1.3 % (0.0-7.0); Hematocrit 41.5 % (36.0-46.0); Hemoglobin 13.5 g/dL (12.2-16.2); Lymphocytes # (auto) 3.1 10 ^3/uL (0.4-5.4); Lymphocytes % (auto) 31.2 % (10.0-50.0); Mean Corpuscular Hemoglobin 27.7 pg (28.0-32.0); Mean Corpuscular Hgb Conc. 32.5 g/dL (32.0-36.0); Mean Corpuscular Volume 85.3 fL (80.0-100.0); Monocytes # (auto) 0.9 10 ^3/uL (0-1.3); Monocytes % (auto) 8.9 % (0.0-12.0); Neutrophils # (auto) 5.7 10 ^3/uL (1.6-8.6); Neutrophils % (auto) 58.1 % (37.0-80.0); Nucleated Red Blood Cells % 0.1 %; Red Blood Cells 4.86 10^6/uL (4.0-5.20); White Blood Cell 9.8 10^3/uL (4.4-10.8)
[2023-03-09 13:00] VITALS: BP 143/86
[2023-03-09 17:00] VITALS: BP 139/71
[2023-03-09 20:00] VITALS: BP 130/75
[2023-03-09] MEDS: ATORVASTATIN 20 MG TAB PO SCH (21:15)
[2023-03-09] MEDS: ZOLPIDEM TARTRATE 5 MG TAB PO PRN (21:44)
[2023-03-09 22:00] VITALS: BP 138/68
[2023-03-10] MEDS: D5W/SOD CHLO 0.9% 1,000 ML IV SCH ×4 (00:45→16:20)
[2023-03-10] MEDS: GABAPENTIN 300 MG CAP PO SCH ×3 (04:20→21:18)
[2023-03-10] MEDS: SUCRALFATE 1 GM TAB PO SCH ×4 (04:21→21:17)
[2023-03-10] MEDS: ONDANSETRON HCL 4 MG/2 ML VIAL IV PRN (04:22)
[2023-03-10 05:00] VITALS: BP 112/61
[2023-03-10 06:21] LABS: Albumin 2.7 g/dL (3.4-5.0); Calcium 8.9 mg/dL (8.5-10.1)
[2023-03-10 06:25] LABS: BUN/Creatinine Ratio 12.9 (10.0-20.0); Bilirubin, Total 0.5 mg/dL (0.2-1.0)
[2023-03-10 06:34] LABS: Potassium 2.7 mmol/L (3.5-5.1)
[2023-03-10] MEDS: cefTRIAXone 1GM/50ML D5W 50 ML IV SCH (08:40)
[2023-03-10] MEDS: PANTOPRAZOLE 40 MG/10 ML VIAL INJ IV SCH (08:40)
[2023-03-10] MEDS: METOPROLOL SUCCINATE XL 50 MG TAB PO SCH (08:40)
[2023-03-10 09:00] VITALS: BP 129/79
[2023-03-10] MEDS ORDERED: POTASSIUM CHLORIDE 60 MEQ, LIDOCAINE 1% (LOCAL ANESTH.) 6 ML in SODIUM CHL 0.9% 500 ML IV ONE ×6 (10:00)
[2023-03-10 13:00] VITALS: BP 128/82
[2023-03-10 17:00] VITALS: BP 157/72
[2023-03-10 20:35] LABS: BUN/Creatinine Ratio 10.6 (10.0-20.0); Potassium 3.3 mmol/L (3.5-5.1)
[2023-03-10] MEDS: ATORVASTATIN 20 MG TAB PO SCH (21:18)
[2023-03-10] MEDS: ZOLPIDEM TARTRATE 5 MG TAB PO PRN (21:18)
[2023-03-10 22:00] VITALS: BP 159/71
[2023-03-11] MEDS: D5W/SOD CHLO 0.9% 1,000 ML IV SCH ×4 (03:25→23:25)
[2023-03-11 05:00] VITALS: BP 126/73
[2023-03-11] MEDS: SUCRALFATE 1 GM TAB PO SCH ×4 (07:00→23:16)
[2023-03-11] MEDS: GABAPENTIN 300 MG CAP PO SCH ×3 (07:00→23:16)
[2023-03-11] MEDS ORDERED: LIDOCAINE VISCOUS 2% 15ML UD ONE (08:10)
[2023-03-11] MEDS: PANTOPRAZOLE 40 MG/10 ML VIAL INJ IV SCH (08:46)
[2023-03-11] MEDS: ONDANSETRON HCL 4 MG/2 ML VIAL IV PRN ×2 (08:46→18:27)
[2023-03-11] MEDS: METOPROLOL SUCCINATE XL 50 MG TAB PO SCH (08:47)
[2023-03-11] MEDS: cefTRIAXone 1GM/50ML D5W 50 ML IV SCH (08:47)
[2023-03-11 09:00] VITALS: BP 157/70
[2023-03-11] MEDS ORDERED: POTASSIUM CHLORIDE 60 MEQ, LIDOCAINE 1% (LOCAL ANESTH.) 6 ML in SODIUM CHL 0.9% 500 ML IV ONE (11:30)
[2023-03-11 11:32] LABS: INR 1.06 (0.9-1.15); Partial Thromboplastin Time 26.4 SEC (24.5-34.5)
[2023-03-11] MEDS ORDERED: fentaNYL CITRATE 100 MCG/2 ML VL ONE (11:33)
[2023-03-11] MEDS ORDERED: MIDAZOLAM HCL 2MG/2ML 2ml VIAL (1mg/ml) ONE (11:34)
[2023-03-11] MEDS ORDERED: PROPOFOL 10 MG/ML 20 ML IV ONE (11:51)
[2023-03-11] MEDS ORDERED: ONDANSETRON HCL 4 MG/2 ML VIAL IV PRN (12:15)
[2023-03-11 17:00] VITALS: BP 135/71
[2023-03-11] MEDS: MORPHINE SULFATE INJ 2 MG/ml SYRG IV PRN (18:29)
[2023-03-11] MEDS: ATORVASTATIN 20 MG TAB PO SCH (23:16)
[2023-03-11] MEDS: ZOLPIDEM TARTRATE 5 MG TAB PO PRN (23:18)
[2023-03-12 01:14] VITALS: BP 138/65
[2023-03-12] MEDS: D5W/SOD CHLO 0.9% 1,000 ML IV SCH ×2 (06:05→12:45)
[2023-03-12] MEDS: GABAPENTIN 300 MG CAP PO SCH ×2 (06:49→14:00)
[2023-03-12] MEDS: SUCRALFATE 1 GM TAB PO SCH ×2 (06:49→11:18)
[2023-03-12 06:53] LABS: BUN/Creatinine Ratio 7.8 (10.0-20.0); Calcium 9.1 mg/dL (8.5-10.1); Potassium 3.3 mmol/L (3.5-5.1)
[2023-03-12 07:01] LABS: Basophils # (auto) 0 10 ^3/uL (0-0.2); Basophils % (auto) 0.4 % (0.0-2.0); Eosinophils # (auto) 0.4 10 ^3/uL (0-0.8); Eosinophils % (auto) 4.8 % (0.0-7.0); Hematocrit 37.4 % (36.0-46.0); Hemoglobin 12.2 g/dL (12.2-16.2); Lymphocytes # (auto) 3.2 10 ^3/uL (0.4-5.4); Mean Corpuscular Hemoglobin 27.9 pg (28.0-32.0); Mean Corpuscular Hgb Conc. 32.7 g/dL (32.0-36.0); Mean Corpuscular Volume 85.1 fL (80.0-100.0); Monocytes # (auto) 0.8 10 ^3/uL (0-1.3); Monocytes % (auto) 8.9 % (0.0-12.0); Neutrophils # (auto) 4.4 10 ^3/uL (1.6-8.6); Neutrophils % (auto) 49.9 % (37.0-80.0); Nucleated Red Blood Cells % 0.1 %; Red Blood Cells 4.39 10^6/uL (4.0-5.20); Red Cell Distribution Width 15.9 % (11.8-14.3); White Blood Cell 8.8 10^3/uL (4.4-10.8)
[2023-03-12] MEDS: PANTOPRAZOLE 40 MG/10 ML VIAL INJ IV SCH (08:30)
[2023-03-12] MEDS: cefTRIAXone 1GM/50ML D5W 50 ML IV SCH (08:30)
[2023-03-12] MEDS: METOPROLOL SUCCINATE XL 50 MG TAB PO SCH (08:31)
[2023-03-12 09:00] VITALS: BP 128/74
[2023-03-12] MEDS ORDERED: PANT40T PO (11:46)
[2023-03-12] MEDS ORDERED: SUCR1TAB22 PO (11:46)
[2023-03-12 12:22] VITALS: BP 128/74
[2023-03-12 13:00] VITALS: BP 134/95
== END 2023-03-12 14:30 | disposition home or self-care (01) | DRG 871 ==
LOC: ER 12:49 → OVERFLOW 18:33 → WEST WING 22:45
PROVIDERS: ADMIT Nurse Practitioner; ATTEND Family Medicine
PROC: 0DB68ZX Excision of Stomach, Via Natural or Artificial Opening Endoscopic, Diagnostic (ICD-10-PCS; 2023-03-11)
PROC: 0DB98ZX Excision of Duodenum, Via Natural or Artificial Opening Endoscopic, Diagnostic (ICD-10-PCS; principal; 2023-03-11 11:32)
DX: A41.9 Sepsis, unspecified organism (principal); J96.00 Acute respiratory failure, unspecified whether with hypoxia or hypercapnia; N12 Tubulo-interstitial nephritis, not specified as acute or chronic; J44.1 Chronic obstructive pulmonary disease with (acute) exacerbation; M48.56XA Collapsed vertebra, not elsewhere classified, lumbar region, initial encounter for fracture; N13.9 Obstructive and reflux uropathy, unspecified; I10 Essential (primary) hypertension; E78.5 Hyperlipidemia, unspecified; E87.6 Hypokalemia; F32.A Depression, unspecified; G89.4 Chronic pain syndrome; K21.9 Gastro-esophageal reflux disease without esophagitis; K25.9 Gastric ulcer, unspecified as acute or chronic, without hemorrhage or perforation; K29.70 Gastritis, unspecified, without bleeding; K44.9 Diaphragmatic hernia without obstruction or gangrene; Z82.0 Family history of epilepsy and other diseases of the nervous system; Z82.49 Family history of ischemic heart disease and other diseases of the circulatory system; Z87.11 Personal history of peptic ulcer disease; Z87.442 Personal history of urinary calculi; Z90.49 Acquired absence of other specified parts of digestive tract
CPT/HCPCS: 36415; 71045; 74176; 80048; 80053; 82270; 82271; 83690; 84484; 85014; 85018; 85025; 85610; 85730; 87040; 93005; 96361; 96372; 96374; 96375; C9113; G0378; J0696; J1885; J2001; J2250; J2405; J2704; J7042; J7060

== ENCOUNTER 2023-04-15 08:53 | Inpatient (IN) | payer OTHER, MEDICAID ==
[~2023-04-15] VITALS: Ht 160 cm; Wt 89.9 kg
[~2023-04-15 08:53] MED LIST changes: +PANT40T PO; +SUCR1TAB22 PO
[2023-04-15 09:33] LABS: Basophils # (auto) 0.1 10 ^3/uL (0-0.2); Basophils % (auto) 0.8 % (0.0-2.0); Eosinophils # (auto) 0 10 ^3/uL (0-0.8); Eosinophils % (auto) 0.3 % (0.0-7.0); Hematocrit 44.8 % (36.0-46.0); Hemoglobin 14.5 g/dL (12.2-16.2); Lymphocytes # (auto) 2.2 10 ^3/uL (0.4-5.4); Lymphocytes % (auto) 18.5 % (10.0-50.0); Mean Corpuscular Hemoglobin 27.8 pg (28.0-32.0); Mean Corpuscular Hgb Conc. 32.4 g/dL (32.0-36.0); Monocytes # (auto) 0.8 10 ^3/uL (0-1.3); Monocytes % (auto) 6.5 % (0.0-12.0); Neutrophils # (auto) 8.7 10 ^3/uL (1.6-8.6); Neutrophils % (auto) 73.9 % (37.0-80.0); Nucleated Red Blood Cells % 0.1 %; Red Cell Distribution Width 16.6 % (11.8-14.3); White Blood Cell 11.7 10^3/uL (4.4-10.8)
[2023-04-15 11:30] VITALS: BP 150/77; PULSE 67; RESP 24; TEMP 98.3; O2SAT 98
[2023-04-15] MEDS ORDERED: KETOROLAC TROMETH 30 MG/ML 1ML VIAL IV ONE (11:45)
[2023-04-15] MEDS ORDERED: PANTOPRAZOLE 40 MG/10 ML VIAL INJ IV ONE (11:45)
[2023-04-15] MEDS ORDERED: PATIENTS OWN MEDICATION (Amitriptyline Hcl 50 MG) PO SCH (11:45)
[2023-04-15] MEDS ORDERED: ALBUTEROL SULF 2.5 MG/0.5ML(0.5%) NEB SOLN NEB PRN (11:45)
[2023-04-15] MEDS ORDERED: cefTRIAXone 1GM/50ML D5W 50 ML IV ONE (12:00)
[2023-04-15 12:14] LABS: Chloride 111 mmol/L (98-107); Potassium 3.8 mmol/L (3.5-5.1); Sodium 142 mmol/L (136-145)
[2023-04-15 12:15] LABS: Anion Gap 12 (5-15); Aspartate Aminotransferase 19 U/L (15-37); BUN/Creatinine Ratio 10.4 (10.0-20.0); Blood Urea Nitrogen 8 mg/dL (7-18); Carbon Dioxide 19 mmol/L (21-32); GFR African American 96 mL/min; GFR Non-African American 79 mL/min; Glucose 181 mg/dL (74-106)
[2023-04-15 12:16] LABS: Alanine Aminotransferase 14 U/L (13-56); Albumin 3.9 g/dL (3.4-5.0); Bilirubin, Total 0.6 mg/dL (0.2-1.0); Calcium 9.8 mg/dL (8.5-10.1); Total Protein 7.7 g/dL (6.4-8.2)
[2023-04-15 12:18] LABS: Alkaline Phosphatase 188 U/L (45-117)
[2023-04-15] MEDS ORDERED: metroNIDAZOLE 500MG/100ML 100 ML IV ONE (12:30)
[2023-04-15] MEDS: SODIUM CHLORIDE 0.9% 1,000 ML IV SCH (12:43)
[2023-04-15] MEDS: HYDROcodone-ACET 5/325MG TAB PO PRN (12:52)
[2023-04-15 13:03] LABS: Urine Bacteria FEW /hpf (None Seen); Urine Blood 1+ /uL (Negative); Urine Clarity HAZY (Clear); Urine Color Yellow (Yellow); Urine Mucus FEW (None Seen); Urine Protein, UAD TRACE (Negative); Urine Specific Gravity 1.018 (1.001-1.035); Urine Urobilinogen Normal (Negative); Urine WBC 3 /hpf (0 - 5)
[2023-04-15 14:00] VITALS: PULSE 80; RESP 15; O2SAT 93
[2023-04-15 14:00] LABS: Alcohol, Urine < 3.0 mg/dL (0-10); Barbiturate Scree,Urine NEGATIVE (NEGATIVE); Benzodiazephine Screen, Urine NEGATIVE (NEGATIVE); Cannabinoid Screen, Urine POSITIVE (NEGATIVE); Cocaine Screen, Urine NEGATIVE (NEGATIVE)
[2023-04-15 14:11] LABS: Amphetamine Screen, Urine NEGATIVE (NEGATIVE); Opiate Scree,Urine POSITIVE (NEGATIVE); Phencyclidine Screen, Urine NEGATIVE (NEGATIVE)
[2023-04-15] MEDS: GABAPENTIN 300 MG CAP PO SCH ×2 (14:13→22:00)
[2023-04-15] MEDS: ONDANSETRON HCL 4 MG/2 ML VIAL IV PRN ×2 (14:55→19:28)
[2023-04-15] MEDS: MORPHINE SULFATE INJ 2 MG/ml SYRG IV PRN ×2 (14:56→19:29)
[2023-04-15] MEDS: SUCRALFATE 1 GM/10 ML ORAL SUSP PO SCH ×2 (18:50→22:00)
[2023-04-15] MEDS: metroNIDAZOLE 500MG/100ML 100 ML IV SCH (21:55)
[2023-04-15] MEDS ORDERED: PATIENTS OWN MEDICATION (Fluoxetine HCl (Pmdd) (Fluoxetine HCl) 20 MG) PO SCH (22:00)
[2023-04-15] MEDS: METOCLOPRAMIDE HCL 10 MG TAB PO SCH (22:00)
[2023-04-15] MEDS: ATORVASTATIN 20 MG TAB PO SCH (22:00)
[2023-04-15] MEDS: FLUoxetine HCL 20 MG CAP PO SCH (22:00)
[2023-04-15 23:41] VITALS: BP 150/77; PULSE 67; RESP 24; TEMP 98.3
[2023-04-16] VITALS (11 sets, daily range): BP systolic 118–176; BP diastolic 60–83; PULSE 22–84; RESP 18–19; TEMP 98.3–99.1; O2SAT 93–100
[2023-04-16] MEDS: MORPHINE SULFATE INJ 2 MG/ml SYRG IV PRN ×3 (03:02→16:13)
[2023-04-16] MEDS: ONDANSETRON HCL 4 MG/2 ML VIAL IV PRN ×3 (03:08→20:00)
[2023-04-16] MEDS: metroNIDAZOLE 500MG/100ML 100 ML IV SCH ×3 (04:01→21:01)
[2023-04-16] MEDS: SODIUM CHLORIDE 0.9% 1,000 ML IV SCH ×2 (04:01→05:01)
[2023-04-16 05:53] LABS: Basophils # (auto) 0 10 ^3/uL (0-0.2); Basophils % (auto) 0.4 % (0.0-2.0); Eosinophils # (auto) 0 10 ^3/uL (0-0.8); Eosinophils % (auto) 0.3 % (0.0-7.0); Hematocrit 44.1 % (36.0-46.0); Hemoglobin 13.3 g/dL (12.2-16.2); Lymphocytes # (auto) 2.8 10 ^3/uL (0.4-5.4); Lymphocytes % (auto) 20.7 % (10.0-50.0); Mean Corpuscular Hemoglobin 28.3 pg (28.0-32.0); Mean Corpuscular Hgb Conc. 30.2 g/dL (32.0-36.0); Mean Corpuscular Volume 93.6 fL (80.0-100.0); Monocytes # (auto) 1.2 10 ^3/uL (0-1.3); Monocytes % (auto) 9.1 % (0.0-12.0); Neutrophils # (auto) 9.3 10 ^3/uL (1.6-8.6); Neutrophils % (auto) 69.5 % (37.0-80.0); Nucleated Red Blood Cells % 0.2 %; Red Blood Cells 4.72 10^6/uL (4.0-5.20); Red Cell Distribution Width 17.7 % (11.8-14.3); White Blood Cell 13.4 10^3/uL (4.4-10.8)
[2023-04-16] MEDS: GABAPENTIN 300 MG CAP PO SCH ×3 (06:59→20:59)
[2023-04-16] MEDS: SUCRALFATE 1 GM/10 ML ORAL SUSP PO SCH ×4 (06:59→20:59)
[2023-04-16] MEDS: PANTOPRAZOLE 40 MG/10 ML VIAL INJ IV SCH (09:13)
[2023-04-16] MEDS: METOCLOPRAMIDE HCL 10 MG TAB PO SCH ×2 (09:13→21:01)
[2023-04-16] MEDS: cefTRIAXone 1GM/50ML D5W 50 ML IV SCH (09:13)
[2023-04-16] MEDS: FLUoxetine HCL 20 MG CAP PO SCH ×2 (09:14→20:59)
[2023-04-16] MEDS: ENOXAPARIN SOD 40 MG/0.4 ML SYRINGE SC SCH (09:14)
[2023-04-16] MEDS ORDERED: ATORVASTATIN CALCIUM 20 MG PO SCH (10:00)
[2023-04-16] MEDS ORDERED: METOPROLOL SUCCINATE XL 50 MG TAB PO SCH (10:00)
[2023-04-16] MEDS ORDERED: PATIENTS OWN MEDICATION (Metoprolol Succinate (Metoprolol Succinate Er) 25 MG) PO SCH (10:00)
[2023-04-16 17:05] LABS: Anion Gap 7 (5-15); Blood Urea Nitrogen 8 mg/dL (7-18); Carbon Dioxide 26 mmol/L (21-32); Chloride 109 mmol/L (98-107); GFR African American 136 mL/min; GFR Non-African American 112 mL/min; Glucose 100 mg/dL (74-106); Potassium 3.3 mmol/L (3.5-5.1); Sodium 142 mmol/L (136-145)
[2023-04-16 17:06] LABS: Alanine Aminotransferase 15 U/L (13-56); Albumin 3.6 g/dL (3.4-5.0); Alkaline Phosphatase 155 U/L (45-117); Aspartate Aminotransferase 17 U/L (15-37); Bilirubin, Total 0.3 mg/dL (0.2-1.0); Calcium 9.5 mg/dL (8.5-10.1); Lipase 37 U/L (73-393); Total Protein 7.2 g/dL (6.4-8.2)
[2023-04-16] MEDS: hydrALAZINE HCL 20 MG/ML VL IV PRN (17:27)
[2023-04-16] MEDS ORDERED: POTASSIUM CHL 20MEQ/100ML 100 ML IV ONE (18:15)
[2023-04-16 19:57] LABS: Magnesium 2.5 mg/dL (1.6-2.6)
[2023-04-16] MEDS: ATORVASTATIN 20 MG TAB PO SCH (20:59)
[2023-04-16] MEDS: ACETAMINOPHEN 325 MG TAB PO PRN (21:28)
[2023-04-17] VITALS (10 sets, daily range): BP systolic 102–177; BP diastolic 56–85; PULSE 73–95; RESP 16–20; TEMP 97.9–98.3; O2SAT 93–100
[2023-04-17] MEDS: MORPHINE SULFATE INJ 2 MG/ml SYRG IV PRN (01:44)
[2023-04-17] MEDS: hydrALAZINE HCL 20 MG/ML VL IV PRN (01:45)
[2023-04-17] MEDS: ONDANSETRON HCL 4 MG/2 ML VIAL IV PRN ×4 (01:45→22:10)
[2023-04-17] MEDS: metroNIDAZOLE 500MG/100ML 100 ML IV SCH ×3 (04:09→19:37)
[2023-04-17] MEDS: ACETAMINOPHEN 325 MG TAB PO PRN ×2 (04:09→12:35)
[2023-04-17] MEDS: SUCRALFATE 1 GM/10 ML ORAL SUSP PO SCH ×4 (06:11→22:08)
[2023-04-17] MEDS: GABAPENTIN 300 MG CAP PO SCH ×3 (06:11→22:09)
[2023-04-17 06:15] LABS: Basophils # (auto) 0 10 ^3/uL (0-0.2); Basophils % (auto) 0.4 % (0.0-2.0); Eosinophils # (auto) 0 10 ^3/uL (0-0.8); Eosinophils % (auto) 0.1 % (0.0-7.0); Hematocrit 43.8 % (36.0-46.0); Lymphocytes # (auto) 2.7 10 ^3/uL (0.4-5.4); Lymphocytes % (auto) 26.5 % (10.0-50.0); Mean Corpuscular Hemoglobin 28.5 pg (28.0-32.0); Mean Corpuscular Hgb Conc. 31.9 g/dL (32.0-36.0); Mean Corpuscular Volume 89.5 fL (80.0-100.0); Monocytes # (auto) 1.1 10 ^3/uL (0-1.3); Monocytes % (auto) 10.6 % (0.0-12.0); Neutrophils # (auto) 6.4 10 ^3/uL (1.6-8.6); Neutrophils % (auto) 62.4 % (37.0-80.0); Nucleated Red Blood Cells % 0.2 %; Red Blood Cells 4.89 10^6/uL (4.0-5.20); Red Cell Distribution Width 16.9 % (11.8-14.3); White Blood Cell 10.2 10^3/uL (4.4-10.8)
[2023-04-17 06:46] LABS: Albumin 3.2 g/dL (3.4-5.0); BUN/Creatinine Ratio 17.9 (10.0-20.0); Bilirubin, Total 0.5 mg/dL (0.2-1.0); Calcium 9.7 mg/dL (8.5-10.1); Total Protein 7.2 g/dL (6.4-8.2)
[2023-04-17 06:49] LABS: Potassium 2.9 mmol/L (3.5-5.1)
[2023-04-17] MEDS: amLODIPine BESYLATE 5 MG TAB PO SCH (08:43)
[2023-04-17] MEDS: LOSARTAN POTASSIUM 50 MG TAB PO SCH (08:44)
[2023-04-17] MEDS: FLUoxetine HCL 20 MG CAP PO SCH ×2 (08:44→22:08)
[2023-04-17] MEDS: ENOXAPARIN SOD 40 MG/0.4 ML SYRINGE SC SCH (08:45)
[2023-04-17] MEDS: PANTOPRAZOLE 40 MG/10 ML VIAL INJ IV SCH (08:45)
[2023-04-17] MEDS: METOCLOPRAMIDE HCL 10 MG TAB PO SCH (08:45)
[2023-04-17] MEDS: CARVEDILOL 3.125 MG TAB PO SCH ×2 (08:45→22:09)
[2023-04-17] MEDS: traMADol HCL 50 MG TAB PO PRN ×3 (08:46→22:08)
[2023-04-17] MEDS: cefTRIAXone 1GM/50ML D5W 50 ML IV SCH (08:50)
[2023-04-17] MEDS ORDERED: PANTOPRAZOLE 40 MG TAB PO SCH ×2 (10:00→22:00)
[2023-04-17] MEDS ORDERED: LOSARTAN POTASSIUM 50 MG TAB PO SCH (10:00)
[2023-04-17] MEDS: POTASSIUM CHL 20MEQ/100ML 100 ML IV SCH ×2 (10:12→13:35)
[2023-04-17] MEDS: SODIUM CHLORIDE 0.9% 1,000 ML IV SCH (11:52)
[2023-04-17] MEDS ORDERED: AML5T PO (14:09)
[2023-04-17] MEDS ORDERED: ACET-1882 PO (14:09)
[2023-04-17] MEDS ORDERED: NITR-87 PO (14:09)
[2023-04-17] MEDS ORDERED: TRAM50TA2 PO (14:09)
[2023-04-17] MEDS ORDERED: PANT40T PO (14:09)
[2023-04-17] MEDS ORDERED: CAR3125T PO (14:09)
[2023-04-17] MEDS ORDERED: LOSA50TA46 PO (14:09)
[2023-04-17] MEDS: METOCLOPRAMIDE HCL 5MG/ml INJ 2ml VIAL IV PRN (18:19)
[2023-04-17] MEDS ORDERED: PANTOPRAZOLE 40 MG/10 ML VIAL INJ IV ONE (19:15)
[2023-04-17] MEDS: HYDROcodone-ACET 5/325MG TAB PO PRN (19:34)
[2023-04-17] MEDS ORDERED: POTASSIUM CHL 20MEQ/100ML 100 ML IV ONE (20:30)
[2023-04-17] MEDS: ATORVASTATIN 20 MG TAB PO SCH (22:08)
[2023-04-17] MEDS: AMITRIPTYLINE HCL 25 MG TAB PO SCH (22:09)
[2023-04-18] VITALS (9 sets, daily range): BP systolic 123–180; BP diastolic 66–89; PULSE 73–95; RESP 18–20; TEMP 97.7–98.3; O2SAT 92–100
[2023-04-18] MEDS: D5W/LACTATED RINGERS 1,000 ML IV SCH ×2 (01:53→09:54)
[2023-04-18] MEDS: metroNIDAZOLE 500MG/100ML 100 ML IV SCH ×3 (03:55→20:24)
[2023-04-18] MEDS: hydrALAZINE HCL 20 MG/ML VL IV PRN (04:07)
[2023-04-18 05:39] LABS: Basophils # (auto) 0 10 ^3/uL (0-0.2); Basophils % (auto) 0.3 % (0.0-2.0); Eosinophils # (auto) 0.1 10 ^3/uL (0-0.8); Eosinophils % (auto) 0.6 % (0.0-7.0); Hematocrit 39.9 % (36.0-46.0); Hemoglobin 13.5 g/dL (12.2-16.2); Lymphocytes # (auto) 2.8 10 ^3/uL (0.4-5.4); Lymphocytes % (auto) 29.4 % (10.0-50.0); Mean Corpuscular Hemoglobin 28.5 pg (28.0-32.0); Mean Corpuscular Hgb Conc. 33.8 g/dL (32.0-36.0); Mean Corpuscular Volume 84.4 fL (80.0-100.0); Monocytes # (auto) 1.2 10 ^3/uL (0-1.3); Monocytes % (auto) 12.6 % (0.0-12.0); Neutrophils # (auto) 5.5 10 ^3/uL (1.6-8.6); Neutrophils % (auto) 57.1 % (37.0-80.0); Red Blood Cells 4.73 10^6/uL (4.0-5.20); Red Cell Distribution Width 16.4 % (11.8-14.3); White Blood Cell 9.6 10^3/uL (4.4-10.8)
[2023-04-18] MEDS: GABAPENTIN 300 MG CAP PO SCH ×3 (05:42→21:15)
[2023-04-18] MEDS: SUCRALFATE 1 GM/10 ML ORAL SUSP PO SCH ×4 (05:42→21:14)
[2023-04-18 05:59] LABS: Albumin 3.4 g/dL (3.4-5.0); Calcium 9.4 mg/dL (8.5-10.1); Potassium 3.1 mmol/L (3.5-5.1)
[2023-04-18 06:02] LABS: Bilirubin, Total 0.5 mg/dL (0.2-1.0)
[2023-04-18] MEDS ORDERED: ERGOCALCIFEROL 50,000 UNIT(1.25MG) CAP PO SCH (08:00)
[2023-04-18] MEDS ORDERED: CYANOCOBALAMIN (B-12) 1000 MCG/1 ML VIAL SUBCUT ONE (08:00)
[2023-04-18] MEDS: CYANOCOBALAMIN 500 MCG TAB PO SCH (09:39)
[2023-04-18] MEDS: PANTOPRAZOLE 40 MG/10 ML VIAL INJ IV SCH ×2 (09:42→20:24)
[2023-04-18] MEDS: ENOXAPARIN SOD 40 MG/0.4 ML SYRINGE SC SCH (09:43)
[2023-04-18] MEDS: FLUoxetine HCL 20 MG CAP PO SCH ×2 (09:44→21:17)
[2023-04-18] MEDS: LOSARTAN POTASSIUM 50 MG TAB PO SCH (09:44)
[2023-04-18] MEDS: amLODIPine BESYLATE 5 MG TAB PO SCH (09:45)
[2023-04-18] MEDS: CARVEDILOL 3.125 MG TAB PO SCH ×2 (09:45→21:16)
[2023-04-18] MEDS: cefTRIAXone 1GM/50ML D5W 50 ML IV SCH (09:47)
[2023-04-18] MEDS: ACETAMINOPHEN 325 MG TAB PO PRN (10:03)
[2023-04-18] MEDS: POTASSIUM CHL 20MEQ/100ML 100 ML IV SCH ×2 (10:54→13:45)
[2023-04-18] MEDS: traMADol HCL 50 MG TAB PO PRN ×3 (11:42→20:24)
[2023-04-18] MEDS: ONDANSETRON HCL 4 MG/2 ML VIAL IV PRN (11:42)
[2023-04-18] MEDS: METOCLOPRAMIDE HCL 5MG/ml INJ 2ml VIAL IV PRN (13:46)
[2023-04-18] MEDS: AMITRIPTYLINE HCL 25 MG TAB PO SCH (21:14)
[2023-04-18] MEDS: ATORVASTATIN 20 MG TAB PO SCH (21:15)
[2023-04-19] VITALS (8 sets, daily range): BP systolic 115–148; BP diastolic 61–84; PULSE 81–107; RESP 18–20; TEMP 97.8–99.2; O2SAT 93–96
[2023-04-19] MEDS: D5W/LACTATED RINGERS 1,000 ML IV SCH ×3 (02:30→22:30)
[2023-04-19] MEDS: metroNIDAZOLE 500MG/100ML 100 ML IV SCH ×3 (04:54→23:38)
[2023-04-19] MEDS: SUCRALFATE 1 GM/10 ML ORAL SUSP PO SCH ×4 (06:14→21:44)
[2023-04-19] MEDS: GABAPENTIN 300 MG CAP PO SCH ×3 (06:14→21:44)
[2023-04-19] MEDS: traMADol HCL 50 MG TAB PO PRN (06:22)
[2023-04-19] MEDS: METOCLOPRAMIDE HCL 5MG/ml INJ 2ml VIAL IV PRN (06:23)
[2023-04-19 07:36] LABS: Basophils # (auto) 0.1 10 ^3/uL (0-0.2); Basophils % (auto) 0.6 % (0.0-2.0); Eosinophils # (auto) 0.2 10 ^3/uL (0-0.8); Eosinophils % (auto) 2.1 % (0.0-7.0); Hematocrit 41.7 % (36.0-46.0); Hemoglobin 13.6 g/dL (12.2-16.2); Lymphocytes # (auto) 3.6 10 ^3/uL (0.4-5.4); Lymphocytes % (auto) 40.8 % (10.0-50.0); Mean Corpuscular Hemoglobin 27.9 pg (28.0-32.0); Mean Corpuscular Hgb Conc. 32.6 g/dL (32.0-36.0); Mean Corpuscular Volume 85.6 fL (80.0-100.0); Monocytes # (auto) 0.9 10 ^3/uL (0-1.3); Monocytes % (auto) 10.1 % (0.0-12.0); Neutrophils # (auto) 4.1 10 ^3/uL (1.6-8.6); Neutrophils % (auto) 46.4 % (37.0-80.0); Nucleated Red Blood Cells % 0.1 %; Red Blood Cells 4.87 10^6/uL (4.0-5.20); Red Cell Distribution Width 16.4 % (11.8-14.3); White Blood Cell 8.7 10^3/uL (4.4-10.8)
[2023-04-19 08:15] LABS: Albumin 3.3 g/dL (3.4-5.0); Calcium 9.7 mg/dL (8.5-10.1)
[2023-04-19 08:17] LABS: Potassium 2.9 mmol/L (3.5-5.1)
[2023-04-19] MEDS ORDERED: POTASSIUM CHLORIDE 20 MEQ, LIDOCAINE 1% (LOCAL ANESTH.) 2 ML in SODIUM CHL 0.9% 100 ML IV ONE (08:30)
[2023-04-19 08:32] LABS: BUN/Creatinine Ratio 9.8 (10.0-20.0); Bilirubin, Total 0.4 mg/dL (0.2-1.0)
[2023-04-19] MEDS ORDERED: POTASSIUM CHLORIDE 40 MEQ, LIDOCAINE 1% (LOCAL ANESTH.) 4 ML in SODIUM CHL 0.9% 250 ML IV ONE (09:00)
[2023-04-19] MEDS ORDERED: POTASSIUM CHL 20MEQ/100ML 100 ML IV ONE (10:30)
[2023-04-19] MEDS: cefTRIAXone 1GM/50ML D5W 50 ML IV SCH (10:33)
[2023-04-19] MEDS: PANTOPRAZOLE 40 MG/10 ML VIAL INJ IV SCH ×2 (10:33→21:51)
[2023-04-19] MEDS: ONDANSETRON HCL 4 MG/2 ML VIAL IV PRN (10:33)
[2023-04-19] MEDS: ENOXAPARIN SOD 40 MG/0.4 ML SYRINGE SC SCH (10:38)
[2023-04-19] MEDS: CARVEDILOL 3.125 MG TAB PO SCH ×2 (10:39→21:50)
[2023-04-19] MEDS: LOSARTAN POTASSIUM 50 MG TAB PO SCH (10:39)
[2023-04-19] MEDS: CYANOCOBALAMIN 500 MCG TAB PO SCH (10:39)
[2023-04-19] MEDS: FLUoxetine HCL 20 MG CAP PO SCH ×2 (10:39→21:47)
[2023-04-19] MEDS: amLODIPine BESYLATE 5 MG TAB PO SCH (10:40)
[2023-04-19] MEDS: POTASSIUM CHL 20MEQ/100ML 100 ML IV SCH ×2 (16:28→17:30)
[2023-04-19] MEDS ORDERED: POTASSIUM CHL 20 Meq TABLET PO ONE (17:45)
[2023-04-19] MEDS: AMITRIPTYLINE HCL 25 MG TAB PO SCH (21:47)
[2023-04-19] MEDS: ATORVASTATIN 20 MG TAB PO SCH (21:48)
[2023-04-20 05:16] VITALS: BP 118/55; PULSE 95; RESP 18; TEMP 98.1; O2SAT 92
[2023-04-20 05:45] LABS: Basophils # (auto) 0 10 ^3/uL (0-0.2); Basophils % (auto) 0.4 % (0.0-2.0); Eosinophils # (auto) 0.3 10 ^3/uL (0-0.8); Eosinophils % (auto) 3.6 % (0.0-7.0); Hematocrit 36.1 % (36.0-46.0); Lymphocytes # (auto) 3.2 10 ^3/uL (0.4-5.4); Lymphocytes % (auto) 40.8 % (10.0-50.0); Mean Corpuscular Hemoglobin 28.4 pg (28.0-32.0); Mean Corpuscular Hgb Conc. 33.2 g/dL (32.0-36.0); Mean Corpuscular Volume 85.5 fL (80.0-100.0); Monocytes # (auto) 0.9 10 ^3/uL (0-1.3); Neutrophils # (auto) 3.4 10 ^3/uL (1.6-8.6); Neutrophils % (auto) 43.2 % (37.0-80.0); Nucleated Red Blood Cells % 0.1 %; Red Blood Cells 4.22 10^6/uL (4.0-5.20); Red Cell Distribution Width 16.6 % (11.8-14.3); White Blood Cell 7.9 10^3/uL (4.4-10.8)
[2023-04-20] MEDS: GABAPENTIN 300 MG CAP PO SCH ×2 (06:11→13:18)
[2023-04-20] MEDS: SUCRALFATE 1 GM/10 ML ORAL SUSP PO SCH ×2 (06:12→11:03)
[2023-04-20 06:14] LABS: Calcium 9.2 mg/dL (8.5-10.1); Potassium 3.1 mmol/L (3.5-5.1)
[2023-04-20 06:17] LABS: Albumin 2.8 g/dL (3.4-5.0); BUN/Creatinine Ratio 10.9 (10.0-20.0)
[2023-04-20 06:20] LABS: Bilirubin, Total 0.4 mg/dL (0.2-1.0); Total Protein 5.9 g/dL (6.4-8.2)
[2023-04-20 08:00] VITALS: BP 115/61; PULSE 91; RESP 18; TEMP 98; O2SAT 94
[2023-04-20] MEDS ORDERED: CLINIMIX PER PHARMACY 0 ML IV SCH (08:00)
[2023-04-20] MEDS ORDERED: POTASSIUM CHL 20MEQ/100ML 100 ML IV SCH (08:00)
[2023-04-20] MEDS ORDERED: METOCLOPRAMIDE HCL 5MG/ml INJ 2ml VIAL IV SCH (08:00)
[2023-04-20] MEDS ORDERED: ONDANSETRON HCL 4 MG/2 ML VIAL IV SCH (08:00)
[2023-04-20] MEDS: metroNIDAZOLE 500MG/100ML 100 ML IV SCH ×2 (08:02→14:51)
[2023-04-20] MEDS ORDERED: METOCLOPRAMIDE HCL 5MG/ml INJ 2ml VIAL IV PRN (08:15)
[2023-04-20] MEDS: D5W/LACTATED RINGERS 1,000 ML IV SCH (08:30)
[2023-04-20 09:00] VITALS: BP 115/61; PULSE 91; RESP 18; TEMP 98; O2SAT 94
[2023-04-20] MEDS: cefTRIAXone 1GM/50ML D5W 50 ML IV SCH (09:14)
[2023-04-20] MEDS ORDERED: METOCLOPRAMIDE HCL 10 MG TAB PO SCH (10:00)
[2023-04-20] MEDS ORDERED: PANTOPRAZOLE 40 MG/10 ML VIAL INJ IV SCH (10:00)
[2023-04-20] MEDS: FLUoxetine HCL 20 MG CAP PO SCH (10:49)
[2023-04-20] MEDS: ENOXAPARIN SOD 40 MG/0.4 ML SYRINGE SC SCH (10:49)
[2023-04-20] MEDS: amLODIPine BESYLATE 5 MG TAB PO SCH (10:50)
[2023-04-20] MEDS: CARVEDILOL 3.125 MG TAB PO SCH (10:50)
[2023-04-20] MEDS: LOSARTAN POTASSIUM 50 MG TAB PO SCH (10:51)
[2023-04-20] MEDS: CYANOCOBALAMIN 500 MCG TAB PO SCH (10:51)
[2023-04-20] MEDS: ACETAMINOPHEN 325 MG TAB PO PRN (11:03)
[2023-04-20] MEDS ORDERED: ONDANSETRON HCL 4 MG/2 ML VIAL IV PRN (11:45)
[2023-04-20] MEDS ORDERED: ONDANSETRON ODT 4 MG TAB PO PRN (11:45)
[2023-04-20] MEDS ORDERED: POTASSIUM CHL 20 Meq TABLET PO ONE ×2 (12:00→13:00)
[2023-04-20 12:55] LABS: Magnesium 2.2 mg/dL (1.6-2.6); Phosphorus 2.9 mg/dL (2.5-4.90)
[2023-04-20 13:00] VITALS: BP 114/57; PULSE 81; RESP 18; TEMP 98.6; O2SAT 96
[2023-04-21] MEDS ORDERED: METO-517 PO (15:59)
== END 2023-04-20 16:45 | disposition home or self-care (01) | DRG 392 ==
LOC: ER 08:53 → OVERFLOW 11:42 → EAST 22:56
PROVIDERS: ADMIT Internal Medicine; ATTEND Internal Medicine
DX: K52.9 Noninfective gastroenteritis and colitis, unspecified (principal); N39.0 Urinary tract infection, site not specified; E44.1 Mild protein-calorie malnutrition; I24.9 Acute ischemic heart disease, unspecified; K29.70 Gastritis, unspecified, without bleeding; K21.9 Gastro-esophageal reflux disease without esophagitis; J44.9 Chronic obstructive pulmonary disease, unspecified; I10 Essential (primary) hypertension; N20.0 Calculus of kidney; E66.01 Morbid (severe) obesity due to excess calories; E78.5 Hyperlipidemia, unspecified; F32.A Depression, unspecified; F12.10 Cannabis abuse, uncomplicated; F11.10 Opioid abuse, uncomplicated; E87.6 Hypokalemia; Z20.822 Contact with and (suspected) exposure to COVID-19; D72.829 Elevated white blood cell count, unspecified; Z68.35 Body mass index [BMI] 35.0-35.9, adult; Z90.49 Acquired absence of other specified parts of digestive tract; Z87.11 Personal history of peptic ulcer disease; Z82.0 Family history of epilepsy and other diseases of the nervous system; Z82.49 Family history of ischemic heart disease and other diseases of the circulatory system; Z87.442 Personal history of urinary calculi; Z71.51 Drug abuse counseling and surveillance of drug abuser
CPT/HCPCS: 36415; 71045; 74176; 74181; 78226; 80053; 80061; 80307; 81001; 82306; 82607; 83036; 83690; 83735; 83880; 84100; 84132; 84443; 84484; 85025; 87040; 87086; 87177; 87493; 93005; 93306; 96365; 96375; C9113; G0378; J0696; J1885; J2001; J2405; J3480; J3490

== ENCOUNTER → 2024-05-25 | Outpatient (CLI) | payer OTHER, MEDICAID ==
[~2024-05-25] MED LIST changes: -AMIT50TA10 PO; +AMIT50TA12 PO; +AML5T PO; +CARV-214 PO; -CIPR-173 PO; +LOSA-534 PO; -METO-517 PO; +METO10TA4 PO; -METO25TA93 PO; +NITR-87 PO; -Pantoprazole Sodium Sesquihydr PO; -SUCR1TAB22 PO; +SUCR1TAB31 PO
[2024-05-25 12:50] LABS: Urine Bacteria FEW /hpf (None Seen); Urine Blood Negative /uL (Negative); Urine Clarity Turbid (Clear); Urine Color Light-Yellow (Yellow); Urine Mucus FEW (None Seen); Urine Protein, UAD Negative (Negative); Urine Specific Gravity 1.015 (1.001-1.035); Urine Urobilinogen Normal (Negative); Urine WBC 2 /hpf (0 - 5); Urine pH 6.5 (5.0-9.0)
== END | disposition home or self-care (01) ==
LOC: LAB 12:28
PROVIDERS: ATTEND Internal Medicine
DX: I10 Essential (primary) hypertension (principal); E78.5 Hyperlipidemia, unspecified; Z79.899 Other long term (current) drug therapy
CPT/HCPCS: 81001; 82274; 87086

== ENCOUNTER 2024-11-18 15:19 | Inpatient (IN) | payer OTHER, MEDICAID ==
[2024-11-18 16:00] VITALS: BP 143/77; PULSE 84; RESP 16; TEMP 98.2; O2SAT 95
--- NOTE | 2024-11-18 16:20 | DVHINCON2 ---
Date Seen: Nov 18, 2024 Referring Physician MD Albert Reason for Consultation Rule out CHF History of Present Illness This is a pleasant 69-year-old female who presented to a PCP follow-up with Dr. Price with complains of lower extremity edema. The patient presents with complaints of progressive bilateral lower extremity edema associated with a dry cough and dyspnea on exertion. Denies PND, active chest pain, palpitations, diaphoresis, or syncopal events. Within the office visit she underwent a 12- lead electrocardiogram revealing a normal sinus rhythm without evidence of ischemia or left ventricular hypertrophy. Blood work is pending at this time. Significant medical history includes hypertension, COPD, GERD, gastritis, hiatal hernia, history of cervical cancer undergoing a cone biopsy in 1987, peripheral neuropathy, cannabinoid use, and morbid obesity. Past Medical History Past medical history reviewed. No other significant than mentioned above. Past Surgical History Cone biopsy, 1987 Hernias x2 BTL Tonsillectomy Family History: Alzheimer's disease G8 MOTHER FH: Alzheimers disease G8 MOTHER FH: Parkinson's disease G8 BROTHER FH: heart attack G8 FATHER, Family history: Hypercholesterolemia (situation) G8 FATHER, Family history: Hypertension G8 FATHER, No Family History of: Alcoholism Family History Family history reviewed. Not significant for cardiovascular disease. Social History Denies the use of alcohol or tobacco. Admits to daily cannabinoid use. Allergies: Coded Allergies: NO KNOWN ALLERGIES (Unverified , 05/13/16) Home Meds Active Scripts Metoclopramide HCl (Metoclopramide Hydrochlor) 10 Mg Tab, 5 MG PO Q12HR for 14 Days, #28 TAB 1 Refill Prov:EMILY PRICE MD 04/21/23 Nitrofurantoin Monohydrate Mac (Macrobid) 100 Mg Cap, 100 MG PO BID for 5 Days, #10 CAP Prov:EMILY PRICE MD 04/17/23 Losartan Potassium (Losartan Potassium) 50 Mg Tab, 100 MG PO DAILY for 30 Days, #60 TAB Prov:EMILY PRICE MD 04/17/23 Amlodipine Besylate (NORVASC TABLET) 5 Mg Tb, 10 MG PO DAILY for 30 Days, #60 TAB Prov:EMILY PRICE MD 04/17/23 Pantoprazole Sodium Sesquihydr (Pantoprazole Sodium) 40 Mg Tab, 40 MG PO BID for 30 Days, #60 TAB Prov:EMILY PRICE MD 04/17/23 Carvedilol (COREG) 3.125 Mg Tab, 3.125 MG PO Q12HR for 30 Days, #60 TAB Prov:EMILY PRICE MD 04/17/23 Sucralfate (CARAFATE) 1 Gm Tab, 1 GM PO QID, #120 TAB Prov:TEMITOPE PICKENS MD 03/12/23 Pantoprazole Sodium Sesquihydr (Pantoprazole Sodium) 40 Mg Tab, 40 MG PO BID, #60 TAB Prov:TEMITOPE PICKENS MD 03/12/23 Sucralfate (CARAFATE SUSP) 1 Gm/10 Ml Ss, 1 GM PO QIDACHS for 30 Days, #120 GM 1 Refill Prov:WAYLON AVERY MD 02/09/23 Hydrocodone-Acetaminophen (Hydrocodone Bitartrate/AC 5-325 mg) 1 Tab Tab, 1 TAB PO Q12HR PRN MDD 2 for 15 Days, #30 TAB Prov:WAYLON AVERY MD 02/09/23 Reported Medications Amitriptyline Hcl (Amitriptyline Hcl) 50 Mg Tab, 50 MG PO QHS 10/24/17 Fluoxetine HCl (Pmdd) (Fluoxetine HCl) 20 Mg Tab, 20 MG PO BID, TAB 10/24/17 Gabapentin (Gabapentin) 300 Mg Cap, 300 MG PO TIDP PRN for MODERATE PAIN for 30 Days, MG 05/13/16 Atorvastatin Calcium (Lipitor) 10 Mg Tab, 20 MG PO DAILY 03/23/10 Home Meds Home medications reviewed. Review of Systems Constitutional: No symptom reported Ears, Nose, & Throat: No symptom reported Eyes: No symptom reported Neurological: No symptoms reported Pulmonary/Respiratory: SOB, BHATT, dry cough Cardiovascular: No symptom reported Gastrointestinal: No symptom reported Genitourinary: No symptom reported Musculoskeletal: BLE edema Skin: No symptom reported Psychiatric: No symptom reported Endocrine: No symptom reported Hemotologic/Lymphatic: No symptom reported Physical Exam General Appearance: Cooperative. Well developed. Morbidly obese. In no acute distress Head Exam: Normal inspection Neck Exam: Normal inspection. Non-tender. Normal alignment Pulmonary/Respiratory: Chest non-tender. Clear bilateral breath sounds Cardiovascular/Chest: Regular rate and rhythm. S1, S2. NSR. No murmurs. No JVD. Peripheral Pulses: 2+ Radial (R). 2+ Radial (L). 2+ Pedal (R). 2+ Pedal (L) Abdominal Exam: Normal bowel sounds. Soft. Nontender. No hepatospenomegaly. No masses Ankle Exam: Positive ankle nonpitting edema Lower extremities: Positive lower extremity nonpitting edema Neuro/Mental Status: A&O x4. Coherent Thoughts/Psych: Normal thought pattern. Appropriate mood and affect. Good judgement and insight Appearance: In no acute distress Skin Exam: Normal inspection. Normal color. Warm. Dry Assessment SOB with recent history of bronchitis Possible COPD exacerbation Bilateral lower extremity edema rule out DVT Rule out structural heart disease Hypertension Cannabinoid use Morbid obesity Plan/Recommendation (Dr. Andujar) We will continue further cardiac evaluation with a transthoracic echocardiogram to rule out structural heart disease. In the meantime, obtain a bilateral lower extremity venous US to rule out DVT. Continue with chest x-ray and baseline blood work. Monitor ECG changes closely and notify. Further orders per clinical course. Thank you for allowing us to participate in this patient's care. Please call if you have any questions or concerns. This medical document was created using an electronic medical record system with voice recognition software and computerized dictation system. Although this document has been carefully reviewed, there might still be some phonetic and typographical errors. Occasional wrong-word or ``sound-alike substitutions may have occurred due to the inherent limitations of voice recognition software. These areas are purely typographical due to imperfections of the software programs and do not reflect any compromise in the patient's medical care. Please read the chart carefully and recognize, using context, where these substitutions have occurred. Plan discussed with: Patient, Other NYHA Physical activity limitations: NA Date of Service: Nov 18, 2024 Billing Provider: NIRAV COYLE Cardiology Common Codes: [id number] INP/OBS CARE (High) NIRAV COYLE Nov 18, 2024 16:20
[2024-11-18 17:14] VITALS: BP 143/77; PULSE 84; RESP 16; TEMP 98.2; O2SAT 95
[2024-11-18 17:16] LABS: Alanine Aminotransferase 14 U/L (7-40); Albumin 4.8 g/dL (3.2-4.8); Aspartate Aminotransferase 27 U/L (13-40); HDL Cholesterol 50 mg/dL (40-59); Magnesium 2.3 mg/dL (1.6-2.6)
[2024-11-18 17:18] LABS: Anion Gap 9 (5-15)
[2024-11-18 17:23] LABS: BUN/Creatinine Ratio 16.9 (10.0-20.0); Blood Urea Nitrogen 13 mg/dL (9-23)
[2024-11-18 17:24] LABS: Alkaline Phosphatase 184 U/L (46-116); Bilirubin, Total 0.2 mg/dL (0.2-1.0); Calcium 10.6 mg/dL (8.7-10.4); Carbon Dioxide 20 mmol/L (20-31); Chloride 109 mmol/L (98-107); Cholesterol 242 mg/dL (< 200); Glucose 89 mg/dL (74-106); LDL Cholesterol 155 mg/dL (< 100); Potassium 4.9 mmol/L (3.5-5.1); Sodium 138 mmol/L (136-145); Triglycerides 331 mg/dL (< 150)
[2024-11-18] MEDS ORDERED: GABAPENTIN 300 MG CAP PO PRN (17:30)
[2024-11-18] MEDS ORDERED: DOCUSATE SOD 100 MG CAP PO PRN (17:30)
[2024-11-18] MEDS ORDERED: HYDROcodone-ACET 5/325MG TAB PO PRN (17:30)
[2024-11-18] MEDS ORDERED: NITROGLYCERIN 0.4 MG SL TAB SL PRN (17:30)
[2024-11-18] MEDS ORDERED: ACETAMINOPHEN 325 MG TAB PO PRN (17:30)
[2024-11-18 17:39] LABS: Eosinophils # (auto) 0.2 10 ^3/uL (0-0.8); Hemoglobin 12.6 g/dL (12.2-16.2); Mean Corpuscular Hemoglobin 26.6 pg (28.0-32.0); Neutrophils # (auto) 5.5 10 ^3/uL (1.6-8.6); Red Blood Cells 4.74 10^6/uL (4.0-5.20)
[2024-11-18 17:41] LABS: Basophils # (auto) 0.3 10 ^3/uL (0-0.2); Basophils % (auto) 2.6 % (0.0-2.0); Hematocrit 39.5 % (36.0-46.0); Lymphocytes # (auto) 3.7 10 ^3/uL (0.4-5.4); Lymphocytes % (auto) 34.8 % (10.0-50.0); Mean Corpuscular Hgb Conc. 31.9 g/dL (32.0-36.0); Mean Corpuscular Volume 83.3 fL (80.0-100.0); Neutrophils % (auto) 51.6 % (37.0-80.0); Nucleated Red Blood Cells % 0.1 %; Platelet Count (auto) 394 10^3/uL (140-450); Red Cell Distribution Width 15.5 % (11.8-14.3); White Blood Cell 10.6 10^3/uL (4.4-10.8)
[2024-11-18] MEDS ORDERED: CYCL-839 PO (18:12)
[2024-11-18] MEDS ORDERED: METO25TA93 PO (18:14)
[2024-11-18] MEDS: FUROSEMIDE 40 MG/4 ML VIAL IV SCH (18:19)
--- NOTE | 2024-11-18 18:31 | DVH ---
XY CHEST TWO VIEWS ROUTINE CLINICAL HISTORY: sob COMPARISON: None TECHNIQUE: Frontal and lateral view of the chest was obtained FINDINGS: Lines and Tubes: None Lungs: No focal consolidation. Pleura: No effusion. No pneumothorax. Cardiomediastinal contours: Unremarkable Bones: No acute osseous abnormality. IMPRESSION: No acute cardiopulmonary disease.
[2024-11-18 20:00] VITALS: PULSE 88; PULSE 90; RESP 18; O2SAT 94
--- NOTE | 2024-11-18 20:25 | DVH ---
Bilateral lower extremity venous duplex Clinical History: Edema rule out DVT Comparison: None Technique: Duplex Doppler evaluation of the deep venous systems of both lower extremities from the co mmon femoral veins to the popliteal veins including color Doppler and spectral/pulsed waveform analys is was performed. Findings: RIGHT SIDE: The common femoral vein demonstrates appropriate compressibility and waveform variability. There is compressibility/patency of the great saphenous vein at the proximal thigh. The femoral vein demonstrates appropriate compressibility and waveform variability. The deep femoral vein demonstrates appropriate compressibility and waveform variability. The popliteal vein demonstrates appropriate compressibility and waveform variability. There is color flow at the tibioperoneal trunk and in the posterior tibial vein. LEFT SIDE: The common femoral vein demonstrates appropriate compressibility and waveform variability. There is compressibility/patency of the great saphenous vein at the proximal thigh. The femoral vein demonstrates appropriate compressibility and waveform variability. The deep femoral vein demonstrates appropriate compressibility and waveform variability. The popliteal vein demonstrates appropriate compressibility and waveform variability. There is color flow at the tibioperoneal trunk and in the posterior tibial vein. Impression: 1. No right or left femoropopliteal venous thrombosis.
[2024-11-18 21:00] VITALS: BP 122/55; PULSE 88; RESP 18; TEMP 98.2; O2SAT 94
[2024-11-18] MEDS: SUCRALFATE 1 GM/10 ML ORAL SUSP PO SCH (21:30)
[2024-11-18] MEDS: CARVEDILOL 3.125 MG TAB PO SCH (21:31)
[2024-11-18] MEDS: PANTOPRAZOLE 40 MG TAB PO SCH (21:31)
[2024-11-18] MEDS: LORazepam 0.5 MG TAB PO PRN (21:31)
[2024-11-18] MEDS: HYDROmorphone HCL 2 MG/ML VL/or syr IV PRN (21:32)
[2024-11-18] MEDS: SODIUM CHLOR 0.9% PF (SALINE LOCK) 10ML VIAL/SYR IV SCH (21:40)
[2024-11-18] MEDS: MORPHINE SULFATE INJ 2 MG/ml SYRG IV PRN (22:25)
[2024-11-19] VITALS (8 sets, daily range): BP systolic 108–140; BP diastolic 54–73; PULSE 82–103; RESP 17–18; TEMP 97.3–98.3; O2SAT 91–100
[2024-11-19 08:50] LABS: Basophils # (auto) 0 10 ^3/uL (0-0.2); Basophils % (auto) 0.3 % (0.0-2.0); Eosinophils # (auto) 0.3 10 ^3/uL (0-0.8); Eosinophils % (auto) 3.3 % (0.0-7.0); Hematocrit 42.3 % (36.0-46.0); Hemoglobin 13.7 g/dL (12.2-16.2); Lymphocytes # (auto) 2.9 10 ^3/uL (0.4-5.4); Lymphocytes % (auto) 36.7 % (10.0-50.0); Mean Corpuscular Hemoglobin 26.7 pg (28.0-32.0); Mean Corpuscular Hgb Conc. 32.3 g/dL (32.0-36.0); Mean Corpuscular Volume 82.6 fL (80.0-100.0); Monocytes # (auto) 0.8 10 ^3/uL (0-1.3); Monocytes % (auto) 10.2 % (0.0-12.0); Neutrophils # (auto) 3.9 10 ^3/uL (1.6-8.6); Neutrophils % (auto) 49.5 % (37.0-80.0); Nucleated Red Blood Cells % 0.1 %; Platelet Count (auto) 392 10^3/uL (140-450); Red Blood Cells 5.12 10^6/uL (4.0-5.20); Red Cell Distribution Width 15.4 % (11.8-14.3); White Blood Cell 7.9 10^3/uL (4.4-10.8)
[2024-11-19 09:08] LABS: Alanine Aminotransferase 15 U/L (7-40); Albumin 4.8 g/dL (3.2-4.8); Alkaline Phosphatase 170 U/L (46-116); Anion Gap 8 (5-15); Aspartate Aminotransferase 21 U/L (13-40); BUN/Creatinine Ratio 16.2 (10.0-20.0); Blood Urea Nitrogen 12 mg/dL (9-23); Calcium 10.3 mg/dL (8.7-10.4); Carbon Dioxide 26 mmol/L (20-31); Chloride 105 mmol/L (98-107); Glucose 106 mg/dL (74-106); Magnesium 2.2 mg/dL (1.6-2.6); Potassium 3.5 mmol/L (3.5-5.1); Sodium 139 mmol/L (136-145)
[2024-11-19 09:09] LABS: Bilirubin, Total 0.5 mg/dL (0.2-1.0)
[2024-11-19] MEDS: amLODIPine BESYLATE 5 MG TAB PO SCH (10:50)
[2024-11-19] MEDS: LOSARTAN POTASSIUM 50 MG TAB PO SCH (10:51)
[2024-11-19] MEDS: ERGOCALCIFEROL 50,000 UNIT(1.25MG) CAP PO SCH (11:01)
--- NOTE | 2024-11-19 11:47 | DVHHPRES ---
History of Present Illness Resident Creating Document: DAVIS TRAYLOR RESIDENT Reason for Visit: Lower extremity edema History of Present Illness This is a 69-year-old female who presented to the ED with chief complain of lower extremity edema. She has a past medical history relevant for hypertension, COPD, GERD, hiatal hernia, history of cervical cancer, peripheral neuropathy, morbid obesity Surgical history: Calm biopsy in 1987, hernia repair x2, BTL, tonsillectomy Family history: Brother and sister have heart disease, heart attacks, mother of heart attack. Social history: Denies any smoking, tobacco or illicit drug use. She does use cannabis. As she has significant secondhand smoking history Patient stated that for the last month she has been experiencing worsening lower extremity edema, she stated that it was also associated with a dry cough and a shortness of breath on exertion. Patient currently states having episodes of chest pain, midsternal, sharp or pressure-like, moderate in severity, usually last about 1 hour, worsens with exertion, yesterday night she had an episode and she received morphine which relieved the pain. She stated that when she has these sort of pain she also experiences dizziness, lightheadedness, shortness of breath. EKG shows nonspecific T-waves inversion, normal sinus rhythm. Troponins are within normal limits. Patient currently denies any significant shortness of breath, chest pain, dizziness, lightheadedness, nausea. Cardiovascular: HTN Pulmonary: COPD GI: GERD Smoke: No (Secondhand smoking) ALCOHOL: none Drugs: Marijuana Review of Systems Constitutional: No: Fever, Chills, Sweats, Weakness, Malaise, Other Eyes: No: Pain, Vision change, Conjunctivae inflammation, Eyelid inflammation, Other, Redness ENT: No: Ear pain, Ear discharge, Nose pain, Nose discharge, Nose congestion, Mouth pain, Mouth swelling, Throat pain, Throat swelling, Other Respiratory: Cough, Dry; No: Shortness of breath, SOB with excertion, Wheezing, Hemoptysis, Pleuritic Pain, Sputum, Wheezing, Other Cardiovascular: Chest Pain; No: Palpitations, Orthopnea, Paroxysmal Noc. Dyspnea, Edema, Lt Headedness, Other Gastrointestinal: No: Nausea, Vomiting, Abdominal Pain, Diarrhea, Constipation, Melena, Hematochezia, Other Genitourinary: No Dysuria, No Frequency, No Incontinence, No Hematuria, No Retention, No Other Musculoskeletal: No: other, neck pain, shoulder pain, arm pain, back pain, hand pain, leg pain, foot pain Skin: No: Rash, Lesions, Jaundice, Bruising, Other Neurological: No: Weakness, Numbness, Incoordination, Change in speech, Confusion, Seizures, Other Allergies: Coded Allergies: NO KNOWN ALLERGIES (Unverified , 05/13/16) Medications Current Medications Medications Dose Ordered Sig/Luz Route Start Time Stop Time Status Last Admin Dose Admin Sodium Chloride 10 ml Q8HR IV 11/18/24 22:00 11/19/24 05:10 10 ML Lorazepam 0.5 mg Q6HP PRN PO 11/18/24 17:30 11/18/24 21:31 0.5 MG Al Hydrox/Mg Hydrox/Simethicone 30 ml Q6HP PRN PO 11/18/24 17:30 Docusate Sodium 100 mg BIDPRN PRN PO 11/18/24 17:30 Acetaminophen 650 mg Q6HP PRN PO 11/18/24 17:30 Acetaminophen/ Hydrocodone Bitart 1 tab Q4HP PRN PO 11/18/24 17:30 Hydromorphone HCl 0.5 mg Q4HP PRN IV 11/18/24 17:30 11/19/24 11:03 0.5 MG Ondansetron HCl 4 mg Q4HP PRN IV 11/18/24 17:30 Nitroglycerin 0.4 mg Q5MINP PRN SL 11/18/24 17:30 Morphine Sulfate 2 mg Q30M PRN IV 11/18/24 17:30 11/18/24 22:25 2 MG Furosemide 40 mg BIDD IV 11/18/24 18:00 11/19/24 06:16 40 MG Amlodipine Besylate 10 mg DAILY PO 11/19/24 10:00 11/19/24 10:50 10 MG Carvedilol 3.125 mg Q12HR PO 11/18/24 22:00 11/19/24 10:53 3.125 MG Gabapentin 300 mg TIDP PRN PO 11/18/24 17:30 Losartan Potassium 100 mg DAILY PO 11/19/24 10:00 11/19/24 10:51 100 MG Pantoprazole Sodium 40 mg BID PO 11/18/24 22:00 11/19/24 10:50 40 MG Sucralfate 1 gm QIDACHS PO 11/18/24 22:00 11/19/24 10:50 1 GM Ergocalciferol 50,000 unit Q7D PO 11/19/24 07:45 11/19/24 11:01 50,000 UNIT Enoxaparin Sodium 40 mg DAILY SC 11/20/24 10:00 Exam Vital Signs Vital Signs Date Time Temp Pulse Resp B/P (MAP) Pulse Ox O2 Delivery O2 Flow Rate FiO2 11/19/24 11:03 82 16 122/62 11/19/24 09:00 97.7 92 97.7 11/18/24 20:00 Room Air* 0 21 General Appearance: Alert, Oriented X3, Cooperative, No acute distress HEENT: Atraumatic, PERRLA, EOMI, Mucous membr. moist/pink Respiratory: Clear to auscultation, Normal air movement Cardiovascular: Regular rate, Normal S1, Normal S2, No murmurs Abdominal: Normal bowel sounds, Soft, No tenderness, No hepatospenomegaly Extremities: No clubbing, No cyanosis, Normal pulses, Other (Plus two lower extremity pitting edema) Skin: No rashes, No breakdown, No significant lesion Neuro: Normal gait, Normal speech, Strength at 5/5 X4 ext, Normal tone, Sensation intact, Cranial nerves 3-12 NL Psych/Mental Status: Mental status NL Labs/Xrays Labs Test 11/19/24 08:18 11/18/24 17:28 11/18/24 16:47 Range/Units White Blood Count 7.9 # 4.4-10.8 10^3/uL Red Blood Count 5.12 4.0-5.20 10^6/uL Hemoglobin 13.7 12.2-16.2 g/dL Hematocrit 42.3 36.0-46.0 % Mean Corpuscular Volume 82.6 80.0-100.0 fL Mean Corpuscular Hemoglobin 26.7 L 28.0-32.0 pg Mean Corpuscular Hemoglobin Concent 32.3 32.0-36.0 g/dL Red Cell Distribution Width 15.4 H 11.8-14.3 % Platelet Count 392 140-450 10^3/uL Mean Platelet Volume 8.5 6.9-10.8 fL Neutrophils (%) (Auto) 49.5 37.0-80.0 % Lymphocytes (%) (Auto) 36.7 10.0-50.0 % Monocytes (%) (Auto) 10.2 0.0-12.0 % Eosinophils (%) (Auto) 3.3 0.0-7.0 % Basophils (%) (Auto) 0.3 0.0-2.0 % Neutrophils # (Auto) 3.9 1.6-8.6 10 ^3/uL Lymphocytes # (Auto) 2.9 0.4-5.4 10 ^3/uL Monocytes # (Auto) 0.8 0-1.3 10 ^3/uL Eosinophils # (Auto) 0.3 0-0.8 10 ^3/uL Basophils # (Auto) 0 0-0.2 10 ^3/uL Nucleated Red Blood Cells 0.1 % Sodium Level 139 136-145 mmol/L Potassium Level 3.5 3.5-5.1 mmol/L Chloride Level 105 98-107 mmol/L Carbon Dioxide Level 26 20-31 mmol/L Anion Gap 8 5-15 Blood Urea Nitrogen 12 9-23 mg/dL Creatinine 0.74 0.550-1.02 mg/dL Glomerular Filtration Rate Calc 87 >90 mL/min BUN/Creatinine Ratio 16.2 10.0-20.0 Serum Glucose 106 74-106 mg/dL Calcium Level 10.3 8.7-10.4 mg/dL Magnesium Level 2.2 1.6-2.6 mg/dL Total Bilirubin 0.5 0.2-1.0 mg/dL Aspartate Amino Transferase (AST) 21 13-40 U/L Alanine Aminotransferase (ALT) 15 7-40 U/L Alkaline Phosphatase 170 H 46-116 U/L Troponin I High Sensitivity < 3 L </=34 ng/L Total Protein 8.0 5.7-8.2 g/dL Albumin 4.8 3.2-4.8 g/dL Hemoglobin A1c 5.5 <5.7 % A1C B-Type Natriuretic Peptide 10.41 0-100 pg/mL D-Dimer, Quantitative 0.74 H 0.0-0.49 mg/L FEU Triglycerides Level 331 H < 150 mg/dL Cholesterol Level 242 H < 200 mg/dL LDL Cholesterol 155 H < 100 mg/dL HDL Cholesterol 50 40-59 mg/dL Vitamin D 25-Hydroxy 27.5 L 30.0-100 ng/mL Thyroid Stimulating Hormone (TSH) 2.66 0.55-4.78 uIU/mL Assessment/Plan Assessment/Plan Chest pain, rule out ACS, pulmonary embolism Lower extremity edema, rule out CHF, lymphedema, ruled out DVT History of hypertension Dyslipidemia History of COPD GERD Hiatal hernia Peripheral neuropathy Cannabis use Morbid obesity Plan: Elevated D-dimer Pending CT angio of the chest Troponins within normal limits, EKG reviewed, repeat EKG Cardiology following Pending echocardiogram Continue home medications Pending UA, UDS Pending COVID test, influenza test Aspirin 325mg po once, aspirin 81mg po qd lipitor 80mg po qd Goals of care were discussed for 30 minutes. Full code Case was discussed with Dr. Price Plan discussed with: Patient, Other (RN) My Orders Orders - DAVIS TRAYLOR RESIDENT Procedure Category Date Status Time Urinalysis LAB 11/19/24 Logged 07:38 Strict I & O JEAN CLAUDE 11/19/24 In Process 07:38 Covid19 Antigen Brii LAB 11/19/24 Logged Rapid Influenza A&B LAB 11/19/24 Logged 07:38 Ergocalciferol PHA 11/19/24 In Process (Vitamin D 50,000 07:45 Enoxaparin Sodium PHA 11/20/24 In Process (Lovenox) 10:00 Date of Service: Nov 19, 2024 Billing Provider: EMILY PRICE MD Common Visit Codes: [id number] INP/OBS CARE (HIGH) DAVIS TRAYLOR RESIDENT Nov 19, 2024 11:47 EMILY PRICE MD Nov 19, 2024 18:54
--- NOTE | 2024-11-19 11:47 | ECG ---
[facility] Test Date: 2024-11-18 Test Time: 22:36:33 Pat Name: TIM TESFAYE Department: Room: 0240T Gender: F Label Coder: priyank : [id number] Requested By: PETR HANNA Order Number: [id number] Reading MD: Todd Andujar Measurements Intervals [employer] Rate: 87 P: 33 SC: 178 QRS: 44 QRSD: 88 T: 6 QT: 370 QTc: 445 Interpretive Statements Sinus rhythm Probable left atrial enlargement Abnormal R-wave progression, early transition Electronically Signed On 11-20-2024 17:12:00 PDT by Todd Andujar Please click the below link to view image of tracing.
[2024-11-19] MEDS: IOHEXOL 350 MG/ML 100ML IJ ONE (11:48)
[2024-11-19 13:02] LABS: Urine Bacteria None Seen /hpf (None Seen)
[2024-11-19 13:08] LABS: Urine Blood TRACE /uL (Negative); Urine Clarity Clear (Clear); Urine Color Light-Yellow (Yellow); Urine Protein, UAD Negative (Negative); Urine Specific Gravity 1.011 (1.001-1.035); Urine Squamous Epithelial Cell FEW /hpf (<5); Urine Urobilinogen Normal (Negative); Urine WBC < 1 /HPF (0-5)
[2024-11-19 13:27] LABS: Cannabinoid Screen, Urine Pos (NEGATIVE); Opiate Scree,Urine Neg (NEGATIVE)
--- NOTE | 2024-11-19 13:27 | DVH ---
CTA Chest with intravenous contrast INDICATION: elevated ddimer, chest pain COMPARISON: None TECHNIQUE: Multidetector spiral CTA of the chest was performed of the chest with intravenous contrast . PULMONARY ANGIOGRAPHY PROTOCOL was utilized using a bolus-tracking technique centered on the main p ulmonary artery. Axial, coronal and sagittal multiplanar and MIP reformats were performed. CONTRAST: Type of contrast: Omni 350 Contrast injected: 70 ml Radiation dose : Chest: CTDI volume is 23.59 mGy. Dose-length product is 916.13 mGy*cm The dose indicators for CT are the volume computed Tomography (CT) dose Index (CTDIvol) and the dose Length product (DLP), and are measured in units of mGy and mGy-cm, respectively. These indicators are not patient dose, but values generated from the CT scanner acquisition factors. The report includes radiation exposure data for exposures received during this examination. Findings: Pulmonary artery: No pulmonary embolism Lower neck: Normal thyroid. Lungs: Mild patchy ground-glass opacities in both lungs. Atelectasis and scarring in the lung bases. Heart/Vascular Structures: Mild cardiomegaly. No pericardial effusion. Moderate coronary artery calc ification. Lymph Nodes: Subcentimeter mediastinal lymph nodes noted. Pleura: No pleural effusion or significant pneumothorax. Musculoskeletal: No acute osseous abnormality. Soft tissues: Normal. Upper abdomen: Moderate sliding-type hiatal hernia. IMPRESSION: 1. No pulmonary embolism. 2. Patchy ground-glass opacities in both lungs could represent subsegmental atelectasis or be related to an infectious/inflammatory process. Clinical correlation and continued follow-up is recommended. . Moderate sliding-type hiatal hernia. HS:Y
[2024-11-19 13:28] LABS: Amphetamine Screen, Urine Neg (NEGATIVE); Barbiturate Scree,Urine Neg (NEGATIVE); Benzodiazephine Screen, Urine Neg (NEGATIVE); Cocaine Screen, Urine Neg (NEGATIVE); Phencyclidine Screen, Urine Neg (NEGATIVE)
--- NOTE | 2024-11-19 13:28 | DVHPN2 ---
Consult Progress Note Subjective Other Systems: Patient complains of new onset chest pain that began last night. No chest pain at the time of assessment. Objective vital signs Vital Sign Date Time Temp Pulse Resp B/P (MAP) Pulse Ox O2 Delivery O2 Flow Rate FiO2 11/19/24 12:44 97.7 82 17 108/55 (72) 93 97.7 11/19/24 08:00 Room Air* 0 21 Total Intake and Output 11/18/24 11/18/24 11/19/24 15:00 23:00 07:00 Intake Total 240 ml 800 ml Balance 240 ml 800 ml medications Current Medications Medications Dose Ordered Sig/Luz Route Start Time Stop Time Status Last Admin Dose Admin Sodium Chloride 10 ml Q8HR IV 11/18/24 22:00 11/19/24 05:10 10 ML Lorazepam 0.5 mg Q6HP PRN PO 11/18/24 17:30 11/18/24 21:31 0.5 MG Al Hydrox/Mg Hydrox/Simethicone 30 ml Q6HP PRN PO 11/18/24 17:30 Docusate Sodium 100 mg BIDPRN PRN PO 11/18/24 17:30 Acetaminophen 650 mg Q6HP PRN PO 11/18/24 17:30 Acetaminophen/ Hydrocodone Bitart 1 tab Q4HP PRN PO 11/18/24 17:30 Hydromorphone HCl 0.5 mg Q4HP PRN IV 11/18/24 17:30 11/19/24 11:03 0.5 MG Ondansetron HCl 4 mg Q4HP PRN IV 11/18/24 17:30 Nitroglycerin 0.4 mg Q5MINP PRN SL 11/18/24 17:30 Morphine Sulfate 2 mg Q30M PRN IV 11/18/24 17:30 11/18/24 22:25 2 MG Furosemide 40 mg BIDD IV 11/18/24 18:00 11/19/24 06:16 40 MG Amlodipine Besylate 10 mg DAILY PO 11/19/24 10:00 11/19/24 10:50 10 MG Carvedilol 3.125 mg Q12HR PO 11/18/24 22:00 11/19/24 10:53 3.125 MG Gabapentin 300 mg TIDP PRN PO 11/18/24 17:30 Losartan Potassium 100 mg DAILY PO 11/19/24 10:00 11/19/24 10:51 100 MG Pantoprazole Sodium 40 mg BID PO 11/18/24 22:00 11/19/24 10:50 40 MG Sucralfate 1 gm QIDACHS PO 11/18/24 22:00 11/19/24 10:50 1 GM Ergocalciferol 50,000 unit Q7D PO 11/19/24 07:45 11/19/24 11:01 50,000 UNIT Enoxaparin Sodium 40 mg DAILY SC 11/20/24 10:00 Aspirin 81 mg DAILY PO 11/20/24 10:00 Atorvastatin Calcium 80 mg HS PO 11/20/24 22:00 Examination: GENERAL:Normal, LUNGS:Normal, CVS:Normal, NEURO:Normal laboratory and microbiology Laboratory Tests 11/19/24 08:18 Test 11/19/24 08:18 Range/Units Serum Glucose 106 74-106 mg/dL Problem List/Assessment/Plan Problem List/Assessment/Plan Chest pain, rule out coronary ischemia Rule out structural heart disease SOB with recent history of bronchitis Hypertension COPD Cannabinoid use Morbid obesity Plan/Recommendation (Dr. Andujar) Case discussed with Dr. Andujar. We proceed with obtaining a transthoracic echocardiogram to rule out structural heart disease. The patient states that she had episodes of chest pain overnight and this morning. Initial troponin was negative. Given the patient's past medical history, we will recommend for the patient to undergo a nuclear stress test. Monitor ECG changes closely and notify. Further orders per clinical course. Thank you for allowing us to participate in this patient's care. Please call if you have any questions or concerns. This medical document was created using an electronic medical record system with voice recognition software and computerized dictation system. Although this document has been carefully reviewed, there might still be some phonetic and typographical errors. Occasional wrong-word or ``sound-alike substitutions may have occurred due to the inherent limitations of voice recognition software. These areas are purely typographical due to imperfections of the software programs and do not reflect any compromise in the patient's medical care. Please read the chart carefully and recognize, using context, where these substitutions have occurred. Plan discussed with: Patient Date of Service: Nov 19, 2024 Billing Provider: WAN WINSLOW Common Visit Codes: [id number] INP/OBS CARE(HIGH) WAN WINSLOWP Nov 19, 2024 13:28
[2024-11-19] MEDS: ASPirin 325 MG TAB PO ONE (14:27)
[2024-11-19] MEDS: ATORVASTATIN 20 MG TAB PO ONE (14:28)
[2024-11-19] MEDS: POTASSIUM CHL 20 Meq TABLET PO ONE (14:28)
[2024-11-19] MEDS: ENOXAPARIN SOD 40 MG/0.4 ML SYRINGE SC ONE (14:28)
[2024-11-19] MEDS: ONDANSETRON HCL 4 MG/2 ML VIAL IV PRN (21:07)
[2024-11-19] MEDS: MAALOX PLUS or MAALOX 30 ML PO PRN (21:09)
[2024-11-20 01:00] VITALS: BP 112/62; PULSE 100; RESP 18; TEMP 98.2; O2SAT 92
[2024-11-20 06:38] LABS: COVID19 ANTIGEN SOFIA FIA NEGATIVE (NEGATIVE)
[2024-11-20 06:39] LABS: Rapid Influenza A Negative (Negative); Rapid Influenza B Negative (Negative)
[2024-11-20 06:53] LABS: Basophils # (auto) 0.1 10 ^3/uL (0-0.2); Basophils % (auto) 0.6 % (0.0-2.0); Eosinophils # (auto) 0.2 10 ^3/uL (0-0.8); Eosinophils % (auto) 2.3 % (0.0-7.0); Hemoglobin 13.3 g/dL (12.2-16.2); Lymphocytes # (auto) 3.5 10 ^3/uL (0.4-5.4); Mean Corpuscular Hemoglobin 27.8 pg (28.0-32.0); Mean Corpuscular Volume 81.8 fL (80.0-100.0); Monocytes # (auto) 1.1 10 ^3/uL (0-1.3); Monocytes % (auto) 10.2 % (0.0-12.0); Neutrophils # (auto) 5.7 10 ^3/uL (1.6-8.6); Neutrophils % (auto) 53.9 % (37.0-80.0); Nucleated Red Blood Cells % 0.1 %; Platelet Count (auto) 412 10^3/uL (140-450); Red Blood Cells 4.77 10^6/uL (4.0-5.20); Red Cell Distribution Width 15.3 % (11.8-14.3); White Blood Cell 10.5 10^3/uL (4.4-10.8)
[2024-11-20 07:09] LABS: Alanine Aminotransferase 13 U/L (7-40); Albumin 4.3 g/dL (3.2-4.8); Alkaline Phosphatase 160 U/L (46-116); Anion Gap 8 (5-15); Aspartate Aminotransferase 18 U/L (13-40); Bilirubin, Total 0.5 mg/dL (0.2-1.0); Blood Urea Nitrogen 16 mg/dL (9-23); Calcium 10.3 mg/dL (8.7-10.4); Carbon Dioxide 25 mmol/L (20-31); Chloride 106 mmol/L (98-107); Glucose 108 mg/dL (74-106); Potassium 3.8 mmol/L (3.5-5.1); Sodium 139 mmol/L (136-145); Total Protein 7.2 g/dL (5.7-8.2)
[2024-11-20 08:00] VITALS: PULSE 103; RESP 16; O2SAT 94
[2024-11-20 09:00] VITALS: BP 125/71; PULSE 108; RESP 18; TEMP 97.5; O2SAT 97
[2024-11-20] MEDS: ASPirin 81 mg TAB PO SCH (09:16)
[2024-11-20] MEDS: ENOXAPARIN SOD 40 MG/0.4 ML SYRINGE SC SCH (09:19)
--- NOTE | 2024-11-20 12:00 | DVHSR ---
APPROVED REPORT EXAM: Two-dimensional and M-mode echocardiogram with Doppler and color Doppler. INDICATION Hypertension RISK FACTORS Hypertension: Obesity: DIMENSIONS LVDd4.1 (3.8-5.7cm)LA (2D) (1.9-4.0cm)Aortic Root3.4 (2.0-3.7cm) LVDs2.9 (2.5-4.0cm)LA (MM) (1.9-4.0cm)Aortic Cusp Exc1.2 (1.5-2.0cm) EF (%) 58.0 (55-70%)Rt. Atrium (1.9-4.0cm)Asc. Aorta cm IVSd1.0 (0.7-1.1cm)RV (D) (1.8-2.4cm) PWd0.9 (0.7-1.1cm) Mitral Valve MitralMitral Stenosis E wave1.13m/sMV Mean GR.mmHg A wave1.14m/sMV Peak GR.mmHg E/A ratio1.02D MVAcm2 DECEL [id number] 1/2 Timems Aortic Valve Aortic ValveAortic Stenosis V11.16m/Dagoberto Mean GR.9mmHg V21.94m/Dagoberto Peak GR.15mmHg LVOT Diameter2.0 (1.8-2.4cm)Doppler AVA1.88cm2 Pulmonic Valve V20.81m/s Tricuspid Valve TR Velocity2.56m/s [id number] Conclusion Technically good study. Sinus rhythm. Aortic root enlargement. Left atrial enlargement. Mild LV enlargement. Valves appear to be structurally normal. Left ventricular systolic performance is borderline at 50% with normal RV function. Dopplers unremarkable. No pericardial effusion masses or vegetations.
[2024-11-20 13:00] VITALS: BP 141/81; PULSE 110; RESP 18; TEMP 98.4; O2SAT 93
--- NOTE | 2024-11-20 14:42 | DVHPN2 ---
Consult Progress Note Date Seen: Nov 20, 2024 Subjective Review of Systems: CVS:Normal, RESPIRATORY:Normal, NEURO:Normal Other Systems: Denies any cardiac symptoms Objective vital signs Vital Sign Date Time Temp Pulse Resp B/P (MAP) Pulse Ox O2 Delivery O2 Flow Rate FiO2 11/20/24 13:00 98.4 110 18 141/81 (101) 93 98.4 11/20/24 08:00 Room Air* 0 21 Total Intake and Output 11/19/24 11/19/24 11/20/24 15:00 23:00 07:00 Intake Total 840 ml 0 ml Output Total 1200 ml Balance -360 ml 0 ml medications Current Medications Medications Dose Ordered Sig/Luz Route Start Time Stop Time Status Last Admin Dose Admin Sodium Chloride 10 ml Q8HR IV 11/18/24 22:00 11/20/24 06:22 10 ML Lorazepam 0.5 mg Q6HP PRN PO 11/18/24 17:30 11/18/24 21:31 0.5 MG Al Hydrox/Mg Hydrox/Simethicone 30 ml Q6HP PRN PO 11/18/24 17:30 11/19/24 21:09 30 ML Docusate Sodium 100 mg BIDPRN PRN PO 11/18/24 17:30 Acetaminophen 650 mg Q6HP PRN PO 11/18/24 17:30 Acetaminophen/ Hydrocodone Bitart 1 tab Q4HP PRN PO 11/18/24 17:30 Hydromorphone HCl 0.5 mg Q4HP PRN IV 11/18/24 17:30 11/19/24 21:56 0.5 MG Ondansetron HCl 4 mg Q4HP PRN IV 11/18/24 17:30 11/19/24 21:07 4 MG Nitroglycerin 0.4 mg Q5MINP PRN SL 11/18/24 17:30 Morphine Sulfate 2 mg Q30M PRN IV 11/18/24 17:30 11/18/24 22:25 2 MG Furosemide 40 mg BIDD IV 11/18/24 18:00 11/20/24 06:24 40 MG Amlodipine Besylate 10 mg DAILY PO 11/19/24 10:00 11/20/24 09:18 10 MG Carvedilol 3.125 mg Q12HR PO 11/18/24 22:00 11/20/24 09:20 3.125 MG Gabapentin 300 mg TIDP PRN PO 11/18/24 17:30 Losartan Potassium 100 mg DAILY PO 11/19/24 10:00 11/20/24 09:17 100 MG Pantoprazole Sodium 40 mg BID PO 11/18/24 22:00 11/20/24 09:18 40 MG Sucralfate 1 gm QIDACHS PO 11/18/24 22:00 11/19/24 21:58 1 GM Ergocalciferol 50,000 unit Q7D PO 11/19/24 07:45 11/19/24 11:01 50,000 UNIT Enoxaparin Sodium 40 mg DAILY SC 11/20/24 10:00 11/20/24 09:19 40 MG Aspirin 81 mg DAILY PO 11/20/24 10:00 11/20/24 09:16 81 MG Atorvastatin Calcium 80 mg HS PO 11/20/24 22:00 Examination: LUNGS:Normal, CVS:Normal, NEURO:Normal laboratory and microbiology Laboratory Tests 11/20/24 05:44 Test 11/20/24 05:44 Range/Units Serum Glucose 108 H 74-106 mg/dL Problem List/Assessment/Plan Problem List/Assessment/Plan Chest pain rule out coronary ischemia SOB with recent history of bronchitis Hypertension COPD Cannabinoid use Morbid obesity Plan/Recommendation (Dr. Andujar) Transthoracic echocardiogram revealed EF 50% with normal RV function. Originally scheduled for a nuclear stress test nevertheless the patient is requesting to be discharged home stating she will follow up on ischemic work-up as outpatient. Denies any cardiac symptoms. There is no further cardiac work- up indicated at this time. Kindly call if in need to re-consult. Thank you for allowing us to participate in this patient's care. This medical document was created using an electronic medical record system with voice recognition software and computerized dictation system. Although this document has been carefully reviewed, there might still be some phonetic and typographical errors. Occasional wrong-word or ``sound-alike substitutions may have occurred due to the inherent limitations of voice recognition software. These areas are purely typographical due to imperfections of the software programs and do not reflect any compromise in the patient's medical care. Please read the chart carefully and recognize, using context, where these substitutions have occurred. Plan discussed with: Patient, Other Date of Service: Nov 20, 2024 Billing Provider: NIRAV COYLE Cardiology Common Codes: 98462-[id number] INP/OBS CARE(Mod) NIRAV COYLE Nov 20, 2024 14:41
--- NOTE | 2024-11-20 15:40 | DVHDS2 ---
Discharge Summary Date of Admission Nov 18, 2024 at 15:19 Date of Discharge: Nov 20, 2024 Labs/Diagnostic Data: Laboratory Results Test 11/20/24 05:44 11/20/24 05:28 11/19/24 12:35 11/19/24 08:18 White Blood Count 10.5 10^3/uL (4.4-10.8) Red Blood Count 4.77 10^6/uL (4.0-5.20) Hemoglobin 13.3 g/dL (12.2-16.2) Hematocrit 39.0 % (36.0-46.0) Mean Corpuscular Volume 81.8 fL (80.0-100.0) Mean Corpuscular Hemoglobin 27.8 pg (28.0-32.0) Mean Corpuscular Hemoglobin Concent 34.0 g/dL (32.0-36.0) Red Cell Distribution Width 15.3 % (11.8-14.3) Platelet Count 412 10^3/uL (140-450) Mean Platelet Volume 8.4 fL (6.9-10.8) Neutrophils (%) (Auto) 53.9 % (37.0-80.0) Lymphocytes (%) (Auto) 33.0 % (10.0-50.0) Monocytes (%) (Auto) 10.2 % (0.0-12.0) Eosinophils (%) (Auto) 2.3 % (0.0-7.0) Basophils (%) (Auto) 0.6 % (0.0-2.0) Neutrophils # (Auto) 5.7 10 ^3/uL (1.6-8.6) Lymphocytes # (Auto) 3.5 10 ^3/uL (0.4-5.4) Monocytes # (Auto) 1.1 10 ^3/uL (0-1.3) Eosinophils # (Auto) 0.2 10 ^3/uL (0-0.8) Basophils # (Auto) 0.1 10 ^3/uL (0-0.2) Nucleated Red Blood Cells 0.1 % Sodium Level 139 mmol/L (136-145) Potassium Level 3.8 mmol/L (3.5-5.1) Chloride Level 106 mmol/L (98-107) Carbon Dioxide Level 25 mmol/L (20-31) Anion Gap 8 (5-15) Blood Urea Nitrogen 16 mg/dL (9-23) Creatinine 0.80 mg/dL (0.550-1.02) Glomerular Filtration Rate Calc 79 mL/min (>90) BUN/Creatinine Ratio 20.0 (10.0-20.0) Serum Glucose 108 mg/dL (74-106) Calcium Level 10.3 mg/dL (8.7-10.4) Total Bilirubin 0.5 mg/dL (0.2-1.0) Aspartate Amino Transferase (AST) 18 U/L (13-40) Alanine Aminotransferase (ALT) 13 U/L (7-40) Alkaline Phosphatase 160 U/L (46-116) Total Protein 7.2 g/dL (5.7-8.2) Albumin 4.3 g/dL (3.2-4.8) Influenza Type A Antigen Negative (Negative) Influenza Type B Antigen Negative (Negative) SARS-CoV-2 Antigen (Rapid) Negative (NEGATIVE) Urine Color Light-yellow (Yellow) Urine Clarity Clear (Clear) Urine pH 5.0 (5.0-9.0) Urine Specific Young 1.011 (1.001-1.035) Urine Protein Negative (Negative) Urine Ketones Negative (Negative) Urine Blood Trace /uL (Negative) Urine Nitrite Negative (Negative) Urine Bilirubin Negative (Negative) Urine Urobilinogen Normal mg/dL (Negative) Urine Leukocyte Esterase Negative /uL (Negative) Urine RBC <1 /hpf (0 - 4) Urine Microscopic WBC < 1 /HPF (0-5) Urine Squamous Epithelial Cells Few /hpf (<5) Urine Bacteria None seen /hpf (None Seen) Urine Glucose Normal mg/dL (Normal) Urine Opiates Screen Neg (NEGATIVE) Urine Fentanyl Screen Neg (NEGATIVE) Urine Barbiturates Screen Neg (NEGATIVE) Urine Phencyclidine Screen Neg (NEGATIVE) Urine Amphetamines Screen Neg (NEGATIVE) Urine Benzodiazepines Screen Neg (NEGATIVE) Urine Cocaine Screen Neg (NEGATIVE) Urine Cannabinoids Screen Pos (NEGATIVE) Magnesium Level 2.2 mg/dL (1.6-2.6) Troponin I High Sensitivity < 3 ng/L (</=34) C-Reactive Protein High Sensitivity 0.49 mg/dL (<1.0) Test 11/18/24 17:28 11/18/24 16:47 Hemoglobin A1c 5.5 % A1C (<5.7) B-Type Natriuretic Peptide 10.41 pg/mL (0-100) D-Dimer, Quantitative 0.74 mg/L FEU (0.0-0.49) Triglycerides Level 331 mg/dL (< 150) Cholesterol Level 242 mg/dL (< 200) LDL Cholesterol 155 mg/dL (< 100) HDL Cholesterol 50 mg/dL (40-59) Vitamin D 25-Hydroxy 27.5 ng/mL (30.0-100) Thyroid Stimulating Hormone (TSH) 2.66 uIU/mL (0.55-4.78) Other Laboratory Tests 11/20/24 05:44 Brief Hx & Hospital Course: This is a 69-year-old female who presented to the ED with chief complain of lower extremity edema. She has a past medical history relevant for hypertension, COPD, GERD, hiatal hernia, history of cervical cancer, peripheral neuropathy, morbid obesity Surgical history: Calm biopsy in 1987, hernia repair x2, BTL, tonsillectomy Family history: Brother and sister have heart disease, heart attacks, mother of heart attack. Social history: Denies any smoking, tobacco or illicit drug use. She does use cannabis. As she has significant secondhand smoking history Patient stated that for the last month she has been experiencing worsening lower extremity edema, she stated that it was also associated with a dry cough and a shortness of breath on exertion. Patient currently states having episodes of chest pain, midsternal, sharp or pressure-like, moderate in severity, usually last about 1 hour, worsens with exertion, yesterday night she had an episode and she received morphine which relieved the pain. She stated that when she has these sort of pain she also experiences dizziness, lightheadedness, shortness of breath. EKG shows nonspecific T-waves inversion, normal sinus rhythm. Troponins are within normal limits. Patient currently denies any significant shortness of breath, chest pain, dizziness, lightheadedness, nausea. Chest pain, rule out ACS, pulmonary embolism Lower extremity edema, rule out CHF, lymphedema, ruled out DVT History of hypertension Dyslipidemia History of COPD GERD Hiatal hernia Peripheral neuropathy Cannabis use Morbid obesity Condition at Discharge: Fair Final Diagnosis/Problems List see atove Discharge Disposition: Home Discharge Instruct/Medications Diet: Cardiac 2g Na,low cholest Activity: No Restrictions, As Tolerated Discharge Statement: "Patient was advised to return to the ER or call 911 if any headaches, dizziness, shortness of breath, chest pain, abdominal pain, bleeding, fevers, or worsening of medical condition. Patient was counseled about treatment plan, medications, possible side effects, patientverbalized understanding. All questions were answered to the best of my ability. This discharge took greater then 30 minutes in planning, reviewing documentation, counseling the patient, and discussing with other team members." ASSESSMENT ASSESSMENT Assessment Date of Service: Nov 20, 2024 Billing Provider: CHARLIE GIBSON DO Common Visit Codes: 48988-YBR/OBS DISCH DAY >30min CHARLIE GIBSON DO Nov 20, 2024 15:40
[2024-11-20 16:55] VITALS: BP 141/81; PULSE 106; RESP 18; TEMP 98.4; O2SAT 93
[2024-11-20 17:00] VITALS: BP 116/67; PULSE 116; RESP 20; TEMP 98.1; O2SAT 95
[2024-11-20] MEDS ORDERED: ATORVASTATIN 20 MG TAB PO SCH (22:00)
== END 2024-11-20 18:30 | disposition home or self-care (01) | DRG 302 ==
LOC: CENTRAL 15:19 → TELE-EAST 11-19 19:32
PROVIDERS: ADMIT Internal Medicine; ATTEND Internal Medicine
DX: I25.9 Chronic ischemic heart disease, unspecified (principal); I50.31 Acute diastolic (congestive) heart failure; J98.11 Atelectasis; I11.0 Hypertensive heart disease with heart failure; E66.01 Morbid (severe) obesity due to excess calories; K21.9 Gastro-esophageal reflux disease without esophagitis; J44.9 Chronic obstructive pulmonary disease, unspecified; G62.9 Polyneuropathy, unspecified; F12.90 Cannabis use, unspecified, uncomplicated; E78.5 Hyperlipidemia, unspecified; K44.9 Diaphragmatic hernia without obstruction or gangrene; Z85.41 Personal history of malignant neoplasm of cervix uteri; Z82.49 Family history of ischemic heart disease and other diseases of the circulatory system; Z82.0 Family history of epilepsy and other diseases of the nervous system; Z79.891 Long term (current) use of opiate analgesic; Z79.899 Other long term (current) drug therapy; Z79.1 Long term (current) use of non-steroidal anti-inflammatories (NSAID)
CPT/HCPCS: 36415; 71046; 71275; 80053; 80061; 80307; 81001; 82306; 83036; 83735; 83880; 84443; 84484; 85025; 85379; 86141; 87426; 87804; 93005; 93306; 93970; G0378; J2405

== ENCOUNTER 2024-12-01 14:03 | Emergency (ER) | payer OTHER, MEDICAID ==
[~2024-12-01] VITALS: Ht 160 cm; Wt 100.0 kg
[~2024-12-01 14:03] MED LIST changes: +CYCL-839 PO; +METO25TA93 PO
[2024-12-01 15:30] VITALS: BP 127/91; PULSE 105; RESP 20; TEMP 98.4; O2SAT 98
--- NOTE | 2024-12-01 16:01 | ED.PDOC ---
Musculoskeletal HPI Comments 69-year-old presents for a mechanical fall after tripping on an extension cord. Occurred two days ago reports falling on her side and hitting her right eye, left knee, right shoulder. Denies nausea Denies vomiting Denies thunderclap headache Denies taking any blood thinner medication Denies vision/hearing changes Denies focal loss of strength/sensation or changes in speech Chief Complaint: Fall Injury Time Seen by MD: 14:47 Primary Care Provider: YUDY Reviewed Notes: Nurses Notes, Medications, Allergies Allergies: Coded Allergies: NO KNOWN ALLERGIES (Unverified , 05/13/16) Home Meds Active Scripts Metoclopramide HCl (Metoclopramide Hydrochlor) 10 Mg Tab, 5 MG PO Q12HR for 14 Days, #28 TAB 1 Refill Prov:EMILY JIMENES MD 04/21/23 Nitrofurantoin Monohydrate Mac (Macrobid) 100 Mg Cap, 100 MG PO BID for 5 Days, #10 CAP Prov:EMILY JIMENES MD 04/17/23 Losartan Potassium (Losartan Potassium) 50 Mg Tab, 100 MG PO DAILY for 30 Days, #60 TAB Prov:EMILY JIMENES MD 04/17/23 Amlodipine Besylate (NORVASC TABLET) 5 Mg Tb, 10 MG PO DAILY for 30 Days, #60 TAB Prov:EMILY JIMENES MD 04/17/23 Pantoprazole Sodium Sesquihydr (Pantoprazole Sodium) 40 Mg Tab, 40 MG PO BID for 30 Days, #60 TAB Prov:EMILY JIMENES MD 04/17/23 Carvedilol (COREG) 3.125 Mg Tab, 3.125 MG PO Q12HR for 30 Days, #60 TAB Prov:EMILY JIMENES MD 04/17/23 Sucralfate (CARAFATE) 1 Gm Tab, 1 GM PO QID, #120 TAB Prov:TEMITOPE PICKENS MD 03/12/23 Pantoprazole Sodium Sesquihydr (Pantoprazole Sodium) 40 Mg Tab, 40 MG PO BID, #60 TAB Prov:TEMITOPE PICKENS MD 03/12/23 Sucralfate (CARAFATE SUSP) 1 Gm/10 Ml Ss, 1 GM PO QIDACHS for 30 Days, #120 GM 1 Refill Prov:WAYLON AVERY MD 02/09/23 Hydrocodone-Acetaminophen (Hydrocodone Bitartrate/AC 5-325 mg) 1 Tab Tab, 1 TAB PO Q12HR PRN MDD 2 for 15 Days, #30 TAB Prov:WAYLON AVERY MD 02/09/23 Reported Medications Metoprolol Succinate (Metoprolol Succinate Er) 25 Mg Tab, 25 MG PO DAILY for 30 Days, MG 11/18/24 Cyclobenzaprine Hcl (Cyclobenzaprine Hcl) 10 Mg Tab, 5 MG PO Q8HP for 30 Days, MG 11/18/24 Amitriptyline Hcl (Amitriptyline Hcl) 50 Mg Tab, 50 MG PO QHS 10/24/17 Fluoxetine HCl (Pmdd) (Fluoxetine HCl) 20 Mg Tab, 40 MG PO HS, TAB 10/24/17 Gabapentin (Gabapentin) 300 Mg Cap, 300 MG PO TIDP PRN for MODERATE PAIN for 30 Days, MG 05/13/16 Atorvastatin Calcium (Lipitor) 10 Mg Tab, 20 MG PO DAILY 03/23/10 Information Source: Patient Mode of Arrival: Ambulatory Past Medical History PAST MEDICAL HISTORY: COPD, Depression, GERD, High Lipids, HTN, Kidney Stones, PUD Surgical History: Cholecystectomy, Hernia Repair [employer]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 Family History Family History: Unobtainable Social History Smoker: Non-Smoker Alcohol: Denies ETOH Use Drugs: Denies Drug Use Lives In: Home All Other Systems: Reviewed and Negative (Per HPI) Physical Exam General Appearance: No Apparent Distress, Normal HEENT: Head (contussion to right orbital region), Normal ENT Inspection, Pharynx Normal, TMs Normal Neck: Full Range of Motion, Non-Tender, Normal, Normal Inspection Respiratory: Chest Non-Tender, Lungs Clear, No Accessory Muscle Use, No Respiratory Distress, Normal Breath Sounds Cardiovascular: No Murmur, No Gallop, Regular Rate/Rhythm Breast Exam: Deferred Gastrointestinal: No Organomegaly, Non Tender, No Pulsatile Mass, Normal Bowel Sounds, Soft Genitalia: Deferred Pelvic: Deferred Rectal: Deferred Extremities: No calf tenderness, Normal capillary refill, Normal inspection, Normal range of motion, Non-tender, No pedal edema Musculoskeletal : Apperance: Normal Neurologic: Alert, No Motor Deficits, Normal Affect, Normal Mood, No Sensory Deficits Cerebellar Function: Normal Reflexes: Normal Skin: Dry, Normal Color, Warm Lymphatic: No Adenopathy Was a procedure done? Was a procedure done?: No Differential Diagnosis EXT Differential Diagnosis: Fracture, Sprain X-Ray, Labs, Meds, VS Vital Signs Date Time Temp Pulse Resp B/P (MAP) Pulse Ox O2 Delivery O2 Flow Rate FiO2 12/01/24 15:30 105 20 98 Room Air 12/01/24 15:30 98.4 105 20 127/91 (103) 98 98.4 12/01/24 14:04 98.4 105 20 127/91 (103) 98 98.4 Lab Test 12/01/24 16:35 Range/Units White Blood Count 11.4 H 4.4-10.8 10^3/uL Red Blood Count 4.86 4.0-5.20 10^6/uL Hemoglobin 13.1 12.2-16.2 g/dL Hematocrit 40.1 36.0-46.0 % Mean Corpuscular Volume 82.5 80.0-100.0 fL Mean Corpuscular Hemoglobin 27.0 L 28.0-32.0 pg Mean Corpuscular Hemoglobin Concent 32.7 32.0-36.0 g/dL Red Cell Distribution Width 15.7 H 11.8-14.3 % Platelet Count 417 140-450 10^3/uL Mean Platelet Volume 8.4 6.9-10.8 fL Neutrophils (%) (Auto) 58.6 37.0-80.0 % Lymphocytes (%) (Auto) 31.2 10.0-50.0 % Monocytes (%) (Auto) 8.8 0.0-12.0 % Eosinophils (%) (Auto) 0.9 0.0-7.0 % Basophils (%) (Auto) 0.5 0.0-2.0 % Neutrophils # (Auto) 6.7 1.6-8.6 10 ^3/uL Lymphocytes # (Auto) 3.6 0.4-5.4 10 ^3/uL Monocytes # (Auto) 1.0 0-1.3 10 ^3/uL Eosinophils # (Auto) 0.1 0-0.8 10 ^3/uL Basophils # (Auto) 0.1 0-0.2 10 ^3/uL Nucleated Red Blood Cells 0.2 % Sodium Level 138 136-145 mmol/L Potassium Level 3.6 3.5-5.1 mmol/L Chloride Level 104 98-107 mmol/L Carbon Dioxide Level 24 20-31 mmol/L Anion Gap 10 5-15 Blood Urea Nitrogen 12 9-23 mg/dL Creatinine 0.73 0.550-1.02 mg/dL Glomerular Filtration Rate Calc 88 >90 mL/min BUN/Creatinine Ratio 16.4 10.0-20.0 Serum Glucose 101 74-106 mg/dL Calcium Level 10.9 H 8.7-10.4 mg/dL X-Ray, Labs, Meds, VS Comment Patient presents for minor closed head injury. After ROS physical examination imaging was ordered to rule out any acute findings Imaging reviewed by my Patient is stable for discharge at this time. External notes reviewed. Test results and diagnostic imaging interpreted. All diagnostic findings, discharge care, education and instructions provided Follow-up with PCP in 2 to 3 days Patient verbalized understanding and agreed to treatment plan Vital signs stable, afebrile, no acute distress noted Patient ambulatory with strong steady gait Advised to return precautions for any new or worsening symptoms, return to ER immediately for re-evaluation Patient is aware that the purpose of this visit was for an acute medical emergency requiring emergent stabilization. Chronic conditions, including malignancies have not been ruled out. Patient is instructed to follow up with PCP as directed and discharge instructions for continued care and workup. If unable to arrange follow-up, patient is to return to the emergency department for reassessment. Patient (parent or legal guardian if applicable) was given verbal and written discharge instructions and acknowledges understanding. Time of 1ST Reevaluation: 17:00 Reevaluation 1ST: Improved Patient Education/Counseling: Diagnosis, Treatment Family Education/Counseling: Diagnosis, Treatment Departure 1 Departure Time of Disposition: 17:23 Impression: Primary Impression: Fall Qualified Codes: W19.XXXA - Unspecified fall, initial encounter Disposition: HOME / SELF CARE / HOMELESS Condition: Fair Discharged With: Relative Critical Care Note Critical Care Time?: No Stability Stability form required: No Heart Score Heart Score: Heart Score Response (Comments) Value History N/A 0 EKG N/A 0 Age N/A 0 Risk Factors N/A 0 Troponin N/A 0 Total 0 JACKY VIEIRA NP Dec 01, 2024 16:01
--- NOTE | 2024-12-01 16:40 | DVH ---
EXAM: CT HEAD WITHOUT CONTRAST INDICATION: fall. r/o fracture and bleed TECHNIQUE: CT of the head without intravenous contrast. Radiation Dose Information: CT Dose: CTDI volume is 62.3 mGy. Dose-length product is 2331.31 mGy*cm The dose indicators for CT are the volume Computed Tomography (CT) Dose Index (CTDIvol) and the Dose Length Product (DLP), and are measured in units of mGy and mGy-cm, respectively. These indicators are not patient dose, but values generated from the CT scanner acquisition factors. The report includes radiation exposure data for exposures received during this examination. COMPARISON: None FINDINGS: There is no evidence of acute intracranial hemorrhage, extra-axial collection, mass effect, midline s hift, herniation or hydrocephalus. The ventricles, sulci and cisterns are age appropriate. The clancy-white differentiation is intact. Patchy periventricular and subcortical white matter hypoattenuation is nonspecific but may be related to small vessel ischemic disease. The visualized paranasal sinuses and mastoid air cells are clear. Soft tissue swelling above the right eye IMPRESSION: 1. No acute intracranial hemorrhage 2. No CT findings of displaced skull fracture 3. Soft tissue swelling above the right eye.
--- NOTE | 2024-12-01 16:45 | DVH ---
EXAM: XY R SHOULDER 2+ VIEW XRAY HISTORY: fall. r/o fracture COMPARISON: None TECHNIQUE: Four views of the right shoulder were performed. FINDINGS: No acute fracture or dislocation are identified about the right shoulder. No significant degenerativ e changes or loss of subacromial space. There are increased peribronchial markings involving the right lung. IMPRESSION: 1. Unremarkable radiographs of the right shoulder. There are increased peribronchial markings involvi ng the right lung. Follow-up PA and lateral would be helpful
--- NOTE | 2024-12-01 16:47 | DVH ---
EXAM: XY L KNEE 3V XRAY HISTORY: fall. r/o fracture COMPARISON: None TECHNIQUE: 3 views of the left knee were performed. FINDINGS: No acute fracture is identified about the left knee. No significant joint space narrowing. No evide nce of significant joint effusion. However there is almost complete loss of medial compartment space and there are lateral and medial marginal osteophytes and probable degenerative changes involving the patellofemoral compartment space. IMPRESSION: 1. . No acute findings. But there are severe degenerative changes. Follow-up MRI may be helpful
--- NOTE | 2024-12-01 16:54 | DVH ---
Procedure: CT MAXILLOFACIAL WITHOUT Study Date and Requested Time: 2024 04:12 PM Study fall. r/o fracture Comparison: None Dose: CTDI: 62.3 mGy DLP: 2331.31 mGycm Technique: Multiplanar images obtained through the face without intravenous contrast. Findings: [id number] right lateral forehead hematoma with [id number]-[id number] right-sided periorbital soft t issue edema. The orbits and globes otherwise unremarkable. No evidence of acute fracture or other significant osseous abnormality. Paranasal sinuses and mastoids clear. Nasal septum midline position. Nasal cavity and visualized naso pharynx and oropharynx grossly unremarkable with no evidence of focal lesion. Moderate to severe degenerative changes of the visualized cervical spine. Impression: No evidence of acute traumatic fractures. Xmbz-ss-[id number] right-sided periorbital soft tissue edema with [id number] right lateral forehe ad hematoma.
[2024-12-01 17:02] LABS: Basophils # (auto) 0.1 10 ^3/uL (0-0.2); Basophils % (auto) 0.5 % (0.0-2.0); Eosinophils # (auto) 0.1 10 ^3/uL (0-0.8); Eosinophils % (auto) 0.9 % (0.0-7.0); Hematocrit 40.1 % (36.0-46.0); Hemoglobin 13.1 g/dL (12.2-16.2); Lymphocytes # (auto) 3.6 10 ^3/uL (0.4-5.4); Lymphocytes % (auto) 31.2 % (10.0-50.0); Mean Corpuscular Hgb Conc. 32.7 g/dL (32.0-36.0); Mean Corpuscular Volume 82.5 fL (80.0-100.0); Monocytes % (auto) 8.8 % (0.0-12.0); Neutrophils # (auto) 6.7 10 ^3/uL (1.6-8.6); Neutrophils % (auto) 58.6 % (37.0-80.0); Nucleated Red Blood Cells % 0.2 %; Platelet Count (auto) 417 10^3/uL (140-450); Red Blood Cells 4.86 10^6/uL (4.0-5.20); Red Cell Distribution Width 15.7 % (11.8-14.3); White Blood Cell 11.4 10^3/uL (4.4-10.8)
[2024-12-01 17:09] LABS: Chloride 104 mmol/L (98-107); Potassium 3.6 mmol/L (3.5-5.1); Sodium 138 mmol/L (136-145)
[2024-12-01 17:10] LABS: Anion Gap 10 (5-15); Carbon Dioxide 24 mmol/L (20-31)
[2024-12-01 17:15] LABS: Glucose 101 mg/dL (74-106)
[2024-12-01 17:16] LABS: BUN/Creatinine Ratio 16.4 (10.0-20.0); Blood Urea Nitrogen 12 mg/dL (9-23)
[2024-12-01 17:17] LABS: Calcium 10.9 mg/dL (8.7-10.4)
== END 2024-12-01 17:26 | disposition home or self-care (01) ==
LOC: ER 14:03
DX: S00.83XA Contusion of other part of head, initial encounter (principal); J44.9 Chronic obstructive pulmonary disease, unspecified; I10 Essential (primary) hypertension; F32.A Depression, unspecified; Z79.899 Other long term (current) drug therapy; Z90.49 Acquired absence of other specified parts of digestive tract; Z98.890 Other specified postprocedural states; W01.0XXA Fall on same level from slipping, tripping and stumbling without subsequent striking against object, initial encounter; Y93.89 Activity, other specified; Y92.89 Other specified places as the place of occurrence of the external cause; Y99.8 Other external cause status
CPT/HCPCS: 36415; 70450; 70486; 73030; 73562; 80048; 85025

== ENCOUNTER 2025-03-29 14:16 | Emergency (ER) | payer OTHER, MEDICAID ==
[~2025-03-29] VITALS: Ht 160 cm; Wt 94.1 kg
[2025-03-29 14:18] VITALS: BP 118/67; PULSE 93; RESP 20; TEMP 99; O2SAT 93
[2025-03-29 15:19] LABS: Potassium 4.2 mmol/L (3.5-5.1); Sodium 139 mmol/L (136-145)
[2025-03-29 15:20] LABS: Anion Gap 8 (5-15); Carbon Dioxide 23 mmol/L (20-31)
[2025-03-29 15:21] LABS: Calcium 10.4 mg/dL (8.7-10.4)
--- NOTE | 2025-03-29 15:22 | ED.PDOC ---
History of Present Illness HPI Comments This is a 69 years old female with past medical history of hypertension, hyperlipidemia, COPD presented to the ED after a mechanical fall tripped in the driveway on last friday with few bruises over the nose and cheeks. She mentioned that she did not lose balance but she was caring too heavy bags and tripped in the driveway, denied trauma to the head or back but she needed health to stand up after the fall. Today she is coming to the ER and drove by herself. She denied headache, blurred vision, nausea, vomiting, shortness of breath, any trauma to the back or the chest or any changes in bowel and bladder habit. PCP: Dr. Price Chief Complaint: Fall Injury Time Seen by MD: 14:39 Primary Care Provider: YUDY Allergies: Coded Allergies: Prochlorperazine (Verified Allergy, Unknown, 03/29/25) Home Meds Active Scripts Metoclopramide HCl (Metoclopramide Hydrochlor) 10 Mg Tab, 5 MG PO Q12HR for 14 Days, #28 TAB 1 Refill Prov:EMILY PRICE MD 04/21/23 Nitrofurantoin Monohydrate Mac (Macrobid) 100 Mg Cap, 100 MG PO BID for 5 Days, #10 CAP Prov:EMILY PRICE MD 04/17/23 Losartan Potassium (Losartan Potassium) 50 Mg Tab, 100 MG PO DAILY for 30 Days, #60 TAB Prov:EMILY PRICE MD 04/17/23 Amlodipine Besylate (NORVASC TABLET) 5 Mg Tb, 10 MG PO DAILY for 30 Days, #60 TAB Prov:EMILY PRICE MD 04/17/23 Pantoprazole Sodium Sesquihydr (Pantoprazole Sodium) 40 Mg Tab, 40 MG PO BID for 30 Days, #60 TAB Prov:EMILY PRICE MD 04/17/23 Carvedilol (COREG) 3.125 Mg Tab, 3.125 MG PO Q12HR for 30 Days, #60 TAB Prov:EMILY PRICE MD 04/17/23 Sucralfate (CARAFATE) 1 Gm Tab, 1 GM PO QID, #120 TAB Prov:TEMITOPE PICKENS MD 03/12/23 Pantoprazole Sodium Sesquihydr (Pantoprazole Sodium) 40 Mg Tab, 40 MG PO BID, #60 TAB Prov:TEMITOPE PICKENS MD 03/12/23 Sucralfate (CARAFATE SUSP) 1 Gm/10 Ml Ss, 1 GM PO QIDACHS for 30 Days, #120 GM 1 Refill Prov:WAYLON AVERY MD 02/09/23 Hydrocodone-Acetaminophen (Hydrocodone Bitartrate/AC 5-325 mg) 1 Tab Tab, 1 TAB PO Q12HR PRN MDD 2 for 15 Days, #30 TAB Prov:WAYLON AVERY MD 02/09/23 Reported Medications Metoprolol Succinate (Metoprolol Succinate Er) 25 Mg Tab, 25 MG PO DAILY for 30 Days, MG 11/18/24 Cyclobenzaprine Hcl (Cyclobenzaprine Hcl) 10 Mg Tab, 5 MG PO Q8HP for 30 Days, MG 11/18/24 Amitriptyline Hcl (Amitriptyline Hcl) 50 Mg Tab, 50 MG PO QHS 10/24/17 Fluoxetine HCl (Pmdd) (Fluoxetine HCl) 20 Mg Tab, 40 MG PO HS, TAB 10/24/17 Gabapentin (Gabapentin) 300 Mg Cap, 300 MG PO TIDP PRN for MODERATE PAIN for 30 Days, MG 05/13/16 Atorvastatin Calcium (Lipitor) 10 Mg Tab, 20 MG PO DAILY 03/23/10 Information Source: Patient Mode of Arrival: Ambulatory Severity: Moderate Timing: Days Duration: Since onset Prehospital treatment: None Past Medical History PAST MEDICAL HISTORY: COPD, Depression, GERD, High Lipids, HTN, Kidney Stones, PUD Surgical History: Cholecystectomy, Hernia Repair [employer]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 Family History Family History: Unobtainable Social History Smoker: Non-Smoker Alcohol: Denies ETOH Use Drugs: Denies Drug Use, Marijuana Lives In: Home Constitutional: denies: chills, diaphoresis, fatigue, fever, malaise, sweats, weakness, others EENTM: reports: nose pain; denies: blurred vision, double vision, ear bleeding, ear discharge, ear drainage, ear pain, ear ringing, eye pain, eye redness, hearing loss, mouth pain, mouth swelling, nasal discharge, nose bleeding, nose congestion, photophobia, tearing, throat pain, throat swelling, voice changes, others Respiratory: denies: cough, hemoptysis, orthopnea, SOB at rest, shortness of breath, SOB with excertion, stridor, wheezing, others Cardiovascular: denies: chest pain, dizzy spells, diaphoresis, Dyspnea on exertion, edema, irregular heart beat, left arm pain, lightheadedness, palpitations, PND, syncope, others Gastrointestinal: denies: abdomen distended, abdominal pain, blood streaked bowels, constipated, diarrhea, dysphagia, difficulty swallowing, hematemesis, melena, nausea, poor appetite, poor fluid intake, rectal bleeding, rectal pain, vomiting, others Genitourinary: denies: abnormal vagina bleeding, burning, dyspareunia, dysuria, flank pain, frequency, hematuria, incontinence, pain, , vagina discharge, urgency, others Neurological: denies: dizziness, fainting, headache, left sided numbness, left sided weakness, numbness, paresthesia, pre-existing deficit, right sided numbness, right sided weakness, seizure, speech problems, tingling, tremors, weakness, others Musculoskeletal: denies: back pain, gout, joint pain, joint swelling, muscle pain, muscle stiffness, neck pain, others Integumetry: reports: bruises; denies: change in color, change in hair/nails, dryness, laceration, lesions, lumps, rash, wounds, others Allergic/Immunocompromised: denies: Difficulty Healing, Frequent Infections, Hives, Itching, others Hematologic/Lymphatic: denies: anemia, blood clots, easy bleeding, easy bruising, swollen glands, others Endocrine: denies: excessive hunger, excessive sweating, excessive thirst, excessive urination, flushing, intolerance to cold, intolerance to heat, unexplained weight gain, unexplained weight loss, others Psychiatric: denies: anxiety, bipolar disorder, depression, hopeless, panic disorder, schizophrenia, sleepless, suicidal, others Physical Exam General Appearance: Normal HEENT: Normal ENT Inspection, Pharynx Normal, TMs Normal Neck: Full Range of Motion, Non-Tender, Normal, Normal Inspection Respiratory: Chest Non-Tender, Lungs Clear, No Accessory Muscle Use, No Respiratory Distress, Normal Breath Sounds Cardiovascular: No Edema, No JVD, No Murmur, No Gallop, Normal Peripheral P ulses, Regular Rate/Rhythm Breast Exam: Deferred Gastrointestinal: No Organomegaly, Non Tender, No Pulsatile Mass, Normal Bowel Sounds, Soft Genitalia: Deferred Pelvic: Deferred Rectal: Deferred Extremities: No calf tenderness, Normal capillary refill, Normal inspection, Normal range of motion, Non-tender, No pedal edema Neurologic: NOT DONE Cerebellar Function: NOT DONE Reflexes: NOT DONE Skin: NOT DONE Peripheral Pulses: 3+ carotid (R), 3+ carotid (L), 3+ femoral (R), 3+ femoral (L), 3+ dorsalis pedis (R), 3+ dorsalis pedis (L), 3+ Radial (R), 3+ Radial (L), 3+ Brachial (R), 3+ Brachial (L) Lymphatic: NOT DONE Was a procedure done? Was a procedure done?: No Differential Dx Considerations may include: Status post mechanical fall, fracture of the nose, facial trauma, rib fracture X-Ray, Labs, Meds, VS Vital Signs Date Time Temp Pulse Resp B/P (MAP) Pulse Ox O2 Delivery O2 Flow Rate FiO2 03/29/25 14:18 99.0 93 20 118/67 93 99.0 Lab Test 03/29/25 15:01 Range/Units White Blood Count 10.4 4.4-10.8 10^3/uL Red Blood Count 4.61 4.0-5.20 10^6/uL Hemoglobin 12.6 12.2-16.2 g/dL Hematocrit 39.1 36.0-46.0 % Mean Corpuscular Volume 84.8 80.0-100.0 fL Mean Corpuscular Hemoglobin 27.4 L 28.0-32.0 pg Mean Corpuscular Hemoglobin Concent 32.3 32.0-36.0 g/dL Red Cell Distribution Width 17.4 H 11.8-14.3 % Platelet Count 380 140-450 10^3/uL Mean Platelet Volume 8.4 6.9-10.8 fL Neutrophils (%) (Auto) 53.4 37.0-80.0 % Lymphocytes (%) (Auto) 35.1 10.0-50.0 % Monocytes (%) (Auto) 8.3 0.0-12.0 % Eosinophils (%) (Auto) 2.8 0.0-7.0 % Basophils (%) (Auto) 0.4 0.0-2.0 % Neutrophils # (Auto) 5.5 1.6-8.6 10 ^3/uL Lymphocytes # (Auto) 3.6 0.4-5.4 10 ^3/uL Monocytes # (Auto) 0.9 0-1.3 10 ^3/uL Eosinophils # (Auto) 0.3 0-0.8 10 ^3/uL Basophils # (Auto) 0 0-0.2 10 ^3/uL Nucleated Red Blood Cells 0.1 % Sodium Level 139 136-145 mmol/L Potassium Level 4.2 3.5-5.1 mmol/L Chloride Level 108 H 98-107 mmol/L Carbon Dioxide Level 23 20-31 mmol/L Anion Gap 8 5-15 Blood Urea Nitrogen 9 9-23 mg/dL Creatinine 0.77 0.550-1.02 mg/dL Glomerular Filtration Rate Calc 83 >90 mL/min BUN/Creatinine Ratio 11.7 10.0-20.0 Serum Glucose 108 H 74-106 mg/dL Calcium Level 10.4 8.7-10.4 mg/dL X-Ray, Labs, Meds, VS Comment CT scan of the head without contrast and chest x-ray are unremarkable Images Reviewed?: Images reviewed and evaluated by me Time of 1ST Reevaluation: 16:00 Reevaluation 1ST: Improved Patient Education/Counseling: Diagnosis, Treatment Family Education/Counseling: No Family Present SEPSIS Sepsis Screen Date sepsis recognized/suspect: Mar 29, 2025 Time Sepsis recognized/suspect: 8 Recent Procedure: No On Antibiotic Therapy: No Respiratory Rate >20: No Heart Rate >90: Yes Temp<36 C (96.8 F) or >38.3 C: No SBP <90 or MAP <65 mmHG: No New Acute Mental Status Change: No Is the patient on CPAP, BIPAP,: No Physician Orders Urinalysis (03/29/25 14:53) Head Without Contrast (03/29/25 14:53) Chest Portable (03/29/25 14:53) Vital Signs Date Time Temp Pulse Resp B/P (MAP) Pulse Ox O2 Delivery O2 Flow Rate FiO2 03/29/25 14:18 99.0 93 20 118/67 93 99.0 Laboratory Tests Test 03/29/25 15:01 White Blood Count 10.4 10^3/uL (4.4-10.8) Departure 1 Departure Time of Disposition: 16:08 Impression: Primary Impression: Fall Additional Impression: Bruise of face Disposition: 01 HOME / SELF CARE / HOMELESS Condition: Fair Critical Care Note Critical Care Time?: No Stability Stability form required: REMA Caban RESIDENT Mar 29, 2025 15:22
--- NOTE | 2025-03-29 15:22 | DVH ---
CHEST RADIOGRAPH Indication: chest pain, s/p mechanical fall Technique: Single frontal view of the chest was obtained Comparison: XY CHEST PORTABLE on DOS: 04/15/23, XY CHEST PORTABLE on DOS: 03/11/23, XY CHEST XRAY 1 VIE W on DOS: 02/04/23 FINDINGS: Lines and Tubes: None Lungs: No focal consolidation. Pleura: No effusion. No pneumothorax. Cardiomediastinal contours: Heart size is within normal limits with mild atherosclerotic calcificatio n and uncoiling of the aorta. Bones: No acute osseous abnormality. IMPRESSION: No acute cardiopulmonary disease.
[2025-03-29 15:25] LABS: BUN/Creatinine Ratio 11.7 (10.0-20.0)
[2025-03-29 15:27] LABS: Blood Urea Nitrogen 9 mg/dL (9-23); Chloride 108 mmol/L (98-107); Glucose 108 mg/dL (74-106)
--- NOTE | 2025-03-29 15:31 | DVH ---
CT HEAD WITHOUT CONTRAST Indication: s/p mechanical fall with facial trauma EXAM DATE: 03/29/2025 02:56 PM COMPARISON: CT HEAD WITHOUT CONTRAST on DOS: 12/01/24 TECHNIQUE: CT of the head without intravenous contrast. RADIATION DOSE: CTDIvol: 53 mGy, DLP: 931 mGy*cm FINDINGS: There is no intracranial hemorrhage. There is no extra-axial fluid, mass, mass effect or midline shif t. The ventricles are midline and normal in size. Basilar cisterns are patent. There are mild periven tricular and subcortical white matter chronic microvascular ischemic changes. Mild global cerebral vo lume loss. The paranasal sinuses and mastoids are well-pneumatized. Imaged portion of the orbits are unremarkabl e. IMPRESSION: No intracranial hemorrhage or mass effect. Mild chronic microvascular ischemic changes.
[2025-03-29 15:33] LABS: Hematocrit 39.1 % (36.0-46.0); Hemoglobin 12.6 g/dL (12.2-16.2); Mean Corpuscular Hemoglobin 27.4 pg (28.0-32.0); Mean Corpuscular Volume 84.8 fL (80.0-100.0); Nucleated Red Blood Cells % 0.1 %
== END 2025-03-29 17:16 | disposition home or self-care (01) ==
LOC: ER 14:16
DX: S00.83XA Contusion of other part of head, initial encounter (principal); I10 Essential (primary) hypertension; E78.5 Hyperlipidemia, unspecified; F32.A Depression, unspecified; I67.82 Cerebral ischemia; J44.9 Chronic obstructive pulmonary disease, unspecified; Z79.899 Other long term (current) drug therapy; Z87.11 Personal history of peptic ulcer disease; Z90.49 Acquired absence of other specified parts of digestive tract; Z98.890 Other specified postprocedural states; W01.0XXA Fall on same level from slipping, tripping and stumbling without subsequent striking against object, initial encounter; Y93.89 Activity, other specified; Y92.89 Other specified places as the place of occurrence of the external cause; Y99.8 Other external cause status
CPT/HCPCS: 36415; 70450; 71045; 80048; 85025

== ENCOUNTER 2025-07-13 07:35 | Outpatient (CLI) | payer OTHER, MEDICAID ==
[2025-07-13 08:10] LABS: Mean Corpuscular Volume 82.1 fL (80.0-100.0); Nucleated Red Blood Cells % 0.0 %
[2025-07-13 08:12] LABS: Hematocrit 37.9 % (36.0-46.0); Hemoglobin 12.5 g/dL (12.2-16.2); Mean Corpuscular Hemoglobin 27.0 pg (28.0-32.0)
[2025-07-13 08:52] LABS: Alanine Aminotransferase 13 U/L (7-40); Albumin 4.1 g/dL (3.2-4.8); Anion Gap 9 (5-15); BUN/Creatinine Ratio 15.6 (10.0-20.0); Blood Urea Nitrogen 10 mg/dL (9-23); Calcium 9.5 mg/dL (8.7-10.4); Carbon Dioxide 25 mmol/L (20-31); Cholesterol 120 mg/dL (< 200); HDL Cholesterol 42 mg/dL (40-59); Potassium 3.8 mmol/L (3.5-5.1); Sodium 143 mmol/L (136-145); Total Protein 7.3 g/dL (5.7-8.2); Triglycerides 125 mg/dL (< 150)
[2025-07-13 08:53] LABS: Alkaline Phosphatase 145 U/L (46-116); Bilirubin, Total 0.2 mg/dL (0.2-1.0); Chloride 109 mmol/L (98-107); Glucose 112 mg/dL (74-106)
== END 2025-07-13 17:00 | disposition home or self-care (01) ==
LOC: LAB 07:35
PROVIDERS: ATTEND Licensed Practical Nurse
DX: I11.0 Hypertensive heart disease with heart failure (principal); I50.9 Heart failure, unspecified; E78.5 Hyperlipidemia, unspecified
CPT/HCPCS: 36415; 80053; 80061; 82043; 82274; 85025